=== PATIENT | female | born 1950 | race Hispanic/Latino ===

== ENCOUNTER 2016-11-19 08:17 | Inpatient (IN) | payer OTHER ==
--- NOTE | 2016-11-19 08:40 | ED PDOC ---
Arrival/HPI - General Chief Complaint: Abdominal Pain Time Seen by Provider: 11/19/16 08:39 Historian: Patient - History of Present Illness Narrative History of Present Illness (Text): Radhika Howard is a 66 year old female, whose past medical history includes, who presents to the emergency department complaining of diffuse, worsening upper abdominal pain for one week. Patient states that she experiences associated dizziness, sweats, and nausea. Patient went to an outpatient center who prescribed medications for acid reflux which brought no relief. Patient also went to her PMD three days ago, who took blood and told patient that she may have pancreatitis. PMD directed patient to the emergency department for further evaluation. Patient denies any fevers, recent injury, recent travels, trauma, vomiting, chest pain, or any other complaint at this time. Patient endorses that she is a daily drinker and has "a couple of drinks" every night, either gin or wine. PMD: Dr. Wilson Time/Duration: 1 week Symptom Onset: Gradual Symptom Course: Unchanged Severity Level: Mild Activities at Onset: Light Context: Home Past Medical History - Provider Review Nursing Documentation Reviewed: Yes - Infectious Disease Hx of Infectious Diseases: None - Tetanus Immunization Tetanus Immunization: Unknown - Reproductive Menopause: Yes - Cardiac Hx Hypertension: Yes Hx Pacemaker: Yes - Pulmonary Hx Respiratory Disorders: No - Neurological Hx Neurological Disorder: No - HEENT Hx HEENT Disorder: Yes (wears glasses) - Renal Hx Renal Disorder: No - Endocrine/Metabolic Hx Endocrine Disorders: No - Hematological/Oncological Hx Blood Disorders: No - Integumentary Hx Dermatological Disorder: No - Musculoskeletal/Rheumatological Hx Musculoskeletal Disorders: No Hx Arthritis: Yes ("all over") Hx Falls: No Hx Fractures: Yes (L wrist casted, R ft metatarsal casted) Hx Osteoarthritis: Yes ("all over") - Gastrointestinal Hx Gastrointestinal Disorders: No Hx Gastroesophageal Reflux: Yes Other/Comment: hemorrhoids a "long time ago" - Genitourinary/Gynecological Hx Genitourinary Disorders: No - Psychiatric Hx Psychophysiologic Disorder: No Hx Anxiety: Yes Hx Substance Use: No - Past Surgical History Past Surgical History: Unable to Obtain - Surgical History Hx Cardiac Catheterization: Yes (2001 neg) Hx Orthopedic Surgery: Yes (herniated disc c3 and 4,right hip replacement) Other/Comment: R hip replacement - Anesthesia Hx Anesthesia: No Hx Anesthesia Reactions: No Hx Malignant Hyperthermia: No - Suicidal Assessment Feels Threatened In Home Enviroment: No Family/Social History - Physician Review Nursing Documentation Reviewed: Yes Family/Social History: No Known Family HX Smoking Status: Former Smoker Hx Alcohol Use: Yes (occasional) Frequency of alcohol use: Socially Hx Substance Use: No Hx Substance Use Treatment: No Allergies/Home Meds Allergies/Adverse Reactions: Allergies Penicillins Allergy (Verified 11/19/16 08:25) RASH Home Medications: Home Meds Medication Instructions Recorded Confirmed Valsartan/Hydrochlorothiazide 1 tab PO DAILY 04/27/14 11/19/16 [Valsartan and Hydrochlorothiazide 12.5 mg-160] Amiodarone HCl [Pacerone] 100 mg PO DAILY 11/19/16 11/19/16 Metoprolol Succinate [Toprol XL] 100 mg PO DAILY 11/19/16 11/19/16 Review of Systems - Review of Systems Constitutional: Night Sweats. absent: Fevers Eyes: absent: Vision Changes ENT: absent: Hearing Changes Respiratory: absent: SOB, Cough Cardiovascular: absent: Chest Pain Gastrointestinal: Abdominal Pain, Nausea, Appetite Changes. absent: Vomiting Genitourinary Female: absent: Dysuria, Frequency Musculoskeletal: absent: Arthralgias Skin: absent: Rash, Pruritis Neurological: Dizziness Endocrine: absent: Polyuria Hemo/Lymphatic: absent: Easy Bleeding Psychiatric: absent: Depression Physical Exam - Physical Exam Narrative Physical Exam (Text): Constitutional: No acute distress. Head: Normocephalic. Atraumatic. Eyes: PERRL. ENT: Moist mucous membranes. Neck: Supple. Cardiovascular: Regular rate. Chest: No tenderness. Respiratory: Clear to auscultation bilaterally. GI: Epigastric tenderness with guarding. Back: No CVA tenderness. Musculoskeletal: No tenderness or swelling of extremities. Skin: No rash. Neurologic: Alert, no focal deficit. Vital Signs Reviewed: Yes Vital Signs Temp Pulse Resp BP Pulse Ox 11/19/16 11:29 98.3 F 60 18 100/70 100 11/19/16 09:30 66 18 94/55 L 99 11/19/16 08:38 97.8 F 80 18 100/59 L 97 Temperature: Afebrile Blood Pressure: Hypotensive Pulse: Regular Respiratory Rate: Normal Appearance: Positive for: Well-Appearing, Non-Toxic, Comfortable Pain Distress: None Mental Status: Positive for: Alert and Oriented X 3 Medical Decision Making ED Course and Treatment: Impression: 66 year old female complaining of diffuse abdominal pain for one week. Plan: -- EKG -- Chest X-ray -- Urinalysis and Urine Culture -- Type and Screen -- Labs -- Morphine and IV Fluids -- Reassess and disposition Prior Visits: Notes and results from previous visits were reviewed. Patient last seen in ED on 07/27/14 for shortness of breath and chest pain while shoveling snow. Patient was admitted to hospitalist care for further evaluation. Progress Notes: EKG: Ordered, reviewed, and independently interpreted the EKG. Rate : 73 BPM Rhythm : NSR Interpretation : No ST- T elevations or depressions. Comparison : No previous EKG for comparison. 11/19/16 09:55 Chest X-ray: Creator : Kenton Coffey MD FINDINGS: LUNGS:No active pulmonary disease. PLEURA:No significant pleural effusion identified, no pneumothorax apparent. CARDIOVASCULAR:Normal. OSSEOUS STRUCTURES:No significant abnormalities. VISUALIZED UPPER ABDOMEN:Normal. OTHER FINDINGS:Dual lead pacemaker IMPRESSION: No active disease. Dr. Issa accepts patient to Dr. Wilson's service. He states he will order GI consult at later time as patient does not have private GI. Agrees with US, potassium replacement, IVF, NPO. - Lab Interpretations Lab Results: 11/19/16 08:48 11/19/16 08:45 Lab Results 11/19/16 10:15: Urine Color Yellow, Urine Appearance Clear, Urine pH 6.5, Ur Specific [place] 1.010, Urine Protein Trace H, Urine Glucose (UA) Negative, Urine Ketones Negative, Urine Blood Negative, Urine Nitrate Negative, Urine Bilirubin Negative, Urine Urobilinogen 0.2, Ur Leukocyte Esterase Negative, Urine RBC Negative, Urine WBC 0 - 2, Ur Epithelial Cells 1 - 3, Urine Bacteria Small 11/19/16 09:10: Blood Type A POSITIVE, Antibody Screen Negative, BBK History Checked Patient has bt 11/19/16 08:48: PT 10.5, INR 0.97, APTT 29.4 11/19/16 08:48: WBC 9.1 D, RBC 3.63, Hgb 12.7, Hct 36.7, MCV 101.1, MCH 35.0, MCHC 34.6, RDW 13.5, Plt Count 330, MPV 9.8, Gran % 79.3 H, Lymph % (Auto) 10.0 L, Mathews % (Auto) 9.4 H, Eos % (Auto) 1.1 L, Baso % (Auto) 0.2, Gran # 7.22 H, Lymph # 0.9 L, Mathews # 0.9 H, Eos # 0.1, Baso # 0.02 11/19/16 08:45: Sodium 132, Potassium 2.9 L*, Chloride 91 L, Carbon Dioxide 29, Anion Gap 15, BUN 21, Creatinine 1.5 H, Est GFR ( Amer) 42, Est GFR (Non- Af Amer) 35, Random Glucose 112 H, Calcium 9.6, Total Bilirubin 0.5, AST 23, ALT 24, Alkaline Phosphatase 77, Lactate Dehydrogenase 360, Total Protein 7.7, Albumin 4.3, Globulin 3.4, Albumin/Globulin Ratio 1.3, Amylase 122, Lipase 965 H I have reviewed the lab results: Yes - RAD Interpretation Radiology Orders: 11/19/16 08:48 CHEST PORTABLE [RAD] Stat 11/19/16 09:54 ABDOMEN COMPLETE [US] Stat - Medication Orders Current Medication Orders: Sodium Chloride (Sodium Chloride 0.9%) 1,000 mls @ 100 mls/hr IV .Q10H MICKEY Last Admin: 11/19/16 11:48 Dose: 100 mls/hr Discontinued Medications Sodium Chloride (Sodium Chloride 0.9%) 1,000 mls @ 999 mls/hr IV .Q1H1M STA Stop: 11/19/16 09:48 Last Admin: 11/19/16 09:10 Dose: 999 mls/hr Potassium Chloride (Potassium Chloride 10 Meq/100 Ml) 10 meq in 100 mls @ 100 mls/hr IVPB ONCE ONE Stop: 11/19/16 10:49 Last Admin: 11/19/16 10:02 Dose: 100 mls/hr Morphine Sulfate (Morphine) 2 mg IVP STAT STA Stop: 11/19/16 08:50 Last Admin: 11/19/16 09:02 Dose: 2 mg Re-Assess: MAR Pain Assessment Document 11/19/16 10:02 SRE (Rec: 11/19/16 11:46 SRE [id number]) Pain Reassessment Is this a pain reassessment? Yes Sleep Is patient sleeping during reassessment? Yes Location Pain Location Body Site Abdomen - Scribe Statement The provider has reviewed the documentation as recorded by the Juan Lewis Provider Scribe Attestation: All medical record entries made by the Scribe were at my direction and personally dictated by me. I have reviewed the chart and agree that the record accurately reflects my personal performance of the history, physical exam, medical decision making, and the department course for this patient. I have also personally directed, reviewed, and agree with the discharge instructions and disposition. Disposition/Present on Arrival - Present on Arrival Any Indicators Present on Arrival: No History of DVT/PE: No History of Uncontrolled Diabetes: No Urinary Catheter: No History of Decub. Ulcer: No History Surgical Site Infection Following: None - Disposition Have Diagnosis and Disposition been Completed?: Yes Diagnosis: Pancreatitis, Hypokalemia Disposition: HOSPITALIZED Disposition Time: 09:55 Patient Plan: Admission Condition: GUARDED
[2016-11-19] MEDS ORDERED: Sodium Chloride 0.9% 1,000 ML IV STA (08:48)
[2016-11-19] MEDS ORDERED: Morphine 2 mg/ml ISec IVP STA (08:49)
[2016-11-19 08:57] VITALS: BMI 21.2
[2016-11-19 09:27] LABS: ADD MANUAL DIFF? NO; BASO # 0.02 K/mm3 (0.0-2.0); BASO % 0.2 % (0.0-3.0); EOS # 0.1 (0.0-0.7); EOS % 1.1 % (1.5-5.0); GRAN # 7.22 (1.4-6.5); GRAN % 79.3 % (50.0-68.0); HEMATOCRIT 36.7 % (36.0-48.0); LYMPH # 0.9 (1.2-3.4); MEAN CELL VOLUME 101.1 fL (80.0-105.0); MEAN CORPUSCULAR HGB CONC 34.6 g/dl (31.0-37.0); MEAN PLATELET VOLUME 9.8 fl (7.0-11.0); MONO # 0.9 (0.1-0.6); MONO % 9.4 % (1.0-6.0); PLATELET COUNT 330 10^3/uL (120.0-450.0); RED CELL DISTRIBUTION WIDTH 13.5 % (11.5-14.5); WHITE BLOOD COUNT 9.1 10^3/ul (4.5-11.0)
[2016-11-19 09:36] LABS: INR 0.97 (0.93-1.08); PARTIAL THROMBOPLASTIN TIME 29.4 Seconds (23.7-30.8)
[2016-11-19 09:43] LABS: ALB/GLOB RATIO 1.3 (1.1-1.8); BILIRUBIN,TOTAL 0.5 mg/dL (0.2-1.3); CALCIUM 9.6 mg/dL (8.4-10.5); TOTAL PROTEIN 7.7 g/dL (5.8-8.3)
[2016-11-19 09:50] LABS: POTASSIUM 2.9 mmol/L (3.6-5.0)
--- NOTE | 2016-11-19 09:51 | RAD ---
HISTORY: epigastric pain COMPARISON: 08/23/2014 FINDINGS: LUNGS: No active pulmonary disease. PLEURA: No significant pleural effusion identified, no pneumothorax apparent. CARDIOVASCULAR: Normal. OSSEOUS STRUCTURES: No significant abnormalities. VISUALIZED UPPER ABDOMEN: Normal. OTHER FINDINGS: Dual lead pacemaker IMPRESSION: No active disease.
[2016-11-19 10:45] LABS: PH,URINE 6.5 (4.7-8.0); URINE BILIRUBIN NEGATIVE (NEGATIVE); URINE BLOOD NEGATIVE (NEGATIVE); URINE GLUCOSE (UA) NEGATIVE (NEGATIVE); URINE KETONE NEGATIVE (NEGATIVE); URINE LEUKOCYTE ESTERASE NEGATIVE Leu/uL (NEGATIVE); URINE PROTEIN TRACE mg/dL (<30 mg/dL); URINE UROBILINOGEN 0.2 E.U./dL (<1 E.U./dL)
[2016-11-19 10:46] LABS: URINE APPEARANCE CLEAR (CLEAR); URINE COLOR YELLOW (YELLOW)
[2016-11-19 10:54] LABS: URINE BACTERIA SMALL (NEG); URINE RBC NEGATIVE /hpf (0-2); URINE WBC 0 - 2 /hpf (0-6)
[2016-11-19] MEDS ORDERED: Sodium Chloride 0.9% 1,000 ML IV SCH (11:45)
[2016-11-19] MEDS: Dextrose 5%/0.45% NS 1,000 ML IV SCH (13:48)
--- NOTE | 2016-11-19 14:31 | CARD ---
APPROVED REPORT EKG Measurement Heart [id number] <Conclusion> Poor data quality, interpretation may be adversely affected Normal sinus rhythm Possible Left atrial enlargement Septal infarct, age undetermined Abnormal ECG
[2016-11-19] MEDS ORDERED: Pneumococcal 23-Valent Vaccine IM ONE (14:45)
[2016-11-19] MEDS: Morphine 2 mg/ml ISec IVP PRN (14:49)
--- NOTE | 2016-11-19 18:17 | HP ---
HISTORY OF PRESENT ILLNESS: We were called earlier on today to consider admission for this 66-year-old female who was seen in our office on the , that is approximately 4 days ago, and subsequent labs done as she had some abdominal pain revealed an elevated lipase to the degree that Dr. Quincy Son recommended admission on 11/15, but she is here today, 11/19. On Emergency Room evaluation the patient complains of diffuse upper abdominal pain ongoing for 1 week. In our office the added information was prior history of ulcers. She also has some associated dizziness, sweats and nausea and had been evaluated prior to seeing us by an outpatient center who prescribed acid reflux medications before coming to the office and brought no relief. The patient was also seen by Dr. Sanchez and once the labs returned immediately the suspicion for pancreatitis due to elevated pancreatic enzymes. She has had no fevers or recent injuries. No recent travel and no vomiting to go along with the present abdominal pain. She does admit to drinking a couple of drinks every night either gin or wine. Review of her office chart is remarkable for essential hypertension, history of ventricular tachycardia and subsequent pacemaker insertion. 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 She also had a history of macrocytosis, osteoarthritis of the lumber spine, cervical spine degeneration, left hip pain. She continues to smoke, a history of first herpes zoster, CKD stage II, history of occasional dizziness and cough and ASHD. PAST SURGICAL HISTORY: Remarkable for laminectomy, right hip replacement in 2010, pacemaker insertion and defibrillation was on 08/2014. FAMILY HISTORY: Remarkable for father who at age 42 of heart disease. Her spouse is alive. Her mother at age 62 of liver disease. She has 2 sisters. SOCIAL HISTORY: She does not engage in any physical activity. 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 The drinks admitted in our office are to 2-3 times a week and on a typical day she has 1-2 drinks and on no occasion does she ever go over 6. She denies using any caffeine. ALLERGIES: PENICILLIN. REVIEW OF SYSTEMS: In the office were complaining of epigastric and mid abdominal pain for 4 days, now 7 days. The pain was dull and constant, associated with a loss of appetite and bloating. No fever, nausea or vomiting. The omeprazole yielded no relief and she has lost 8 pounds since 2 weeks before the present visit. PHYSICAL EXAMINATION: From the emergency room: VITAL SIGNS: Show a temperature of 97.8, a weight of 124; weighing 121 in our office 2 days ago. She is with regular pulse of 66, blood pressure 100/70, respiratory rate of 18 with 100% O2 sat by pulse oximetry. GENERAL: Alert and oriented, in mild discomfort. The pain scale in the office was a 4/10. She was conversant in the office and declined immediate referral to the Emergency Room when Dr. Sanchez spoke with her after the results were evident on Saturday and she was endorsed to me on the weekend as we were expecting an admission. Blood pressure in the office was normal at 121/73 versus our hypotensive notes here. HEENT: Normocephalic, atraumatic. Nose: Septum is intact and no mucosal erythema. Throat: Clear with no lesions on the pharynx. NECK: No cervical lymphadenopathy. Neck is supple, with full range of motion. Thyroid appears normal. CARDIAC: Showed no murmurs, rubs or gallops, was regular in rate and rhythm. LUNGS: Have diminished breath sounds with no wheezes, rales or rhonchi. ABDOMEN: Soft with no guarding and bowel sounds were present. There is tenderness on deep palpation of the epigastric and periumbilical area. EXTREMITIES: Showed no clubbing, cyanosis or edema. NEUROLOGIC: Intact. LABORATORY DATA: On admission showed WBC count of 9100 with a slight shift to the left with 79.3% granulocytes and 10% lymphocytes. however does not mention any bands. PT/INRs were normal. Potassium is low, so she was immediately supplemented. Has no diarrhea, so we are not sure of the etiology of the hypokalemia. Creatinine is 1.5, glucose is 112, amylase is 122, lipase is 965 and in the office was in excess of 1200. Urine color is fair, clear. Chest x- ray was consistent just with pacemaker visualization, otherwise unremarkable. The patient received a K rider and was placed on IV fluids. We have now changed the rate to more and she was given morphine in the ER with resolution. Review of her labs show that she is on omeprazole 40, amiodarone 200, hydrochlorothiazide 12.5, valsartan 80, clonazepam 1 mg twice a day, metoprolol ER 100. IMPRESSION: Pancreatitis, abdominal pain, evaluate with GI. SECONDARY DIAGNOSIS: History of pacemaker with continued use of amiodarone. We will ask for a cardiac consult with Dr. Eaton. PLAN: Continue at present her IV fluids, keep n.p.o. and await for further recommendations from cardio and GI. Serial labs were ordered for tomorrow and she will return under the care of Dr. Sanchez as we are covering for her today. Brain Issa MD cc: 73 TT: 11/19/2016 18:16:21 huseyin CRUZ
[2016-11-20] MEDS: Morphine 2 mg/ml ISec IVP PRN ×3 (04:32→20:19)
[2016-11-20] MEDS: Dextrose 5%/0.45% NS 1,000 ML IV SCH ×2 (04:32→22:12)
[2016-11-20 07:14] LABS: ADD MANUAL DIFF? NO
[2016-11-20 07:20] LABS: BASO # 0.03 K/mm3 (0.0-2.0); BASO % 0.5 % (0.0-3.0); EOS # 0.2 (0.0-0.7); EOS % 3.7 % (1.5-5.0); GRAN # 4.09 (1.4-6.5); GRAN % 63.8 % (50.0-68.0); HEMATOCRIT 35.3 % (36.0-48.0); LYMPH # 1.4 (1.2-3.4); LYMPH % 21.2 % (22.0-35.0); MEAN CELL VOLUME 102.9 fL (80.0-105.0); MEAN CORPUSCULAR HEMOGLOBIN 35.6 pg (25.0-35.0); MEAN CORPUSCULAR HGB CONC 34.6 g/dl (31.0-37.0); MEAN PLATELET VOLUME 9.8 fl (7.0-11.0); MONO # 0.7 (0.1-0.6); MONO % 10.8 % (1.0-6.0); PLATELET COUNT 309 10^3/uL (120.0-450.0); RED CELL DISTRIBUTION WIDTH 13.6 % (11.5-14.5); WHITE BLOOD COUNT 6.4 10^3/ul (4.5-11.0)
--- NOTE | 2016-11-20 07:33 | US ---
HISTORY: epigastric pain COMPARISON: None. TECHNIQUE: Sonographic evaluation of the abdomen. FINDINGS: LIVER: Measures 14.7 cm. Normal echogenicity of the liver parenchyma. No mass. No intrahepatic bile duct dilatation. GALLBLADDER: Unremarkable. No gallstones. COMMON BILE DUCT: Measures 3 mm. No stones. No dilatation. PANCREAS: Unremarkable as visualized. No mass. No ductal dilatation. RIGHT KIDNEY: Measures 9.8cm. Normal echogenicity. No calculus, mass, or hydronephrosis. LEFT KIDNEY: Measures 10.1cm. Normal echogenicity. No calculus, mass, or hydronephrosis. SPLEEN: Normal in size and contour. No mass. AORTA: No aneurysmal dilatation. IVC: Unremarkable. OTHER FINDINGS: None. IMPRESSION: Unremarkable abdominal sonogram.
[2016-11-20 07:45] LABS: ALB/GLOB RATIO 1.1 (1.1-1.8); ALKALINE PHOSPHATASE 68 U/L (38-133); ALT/SGPT 20 U/L (7-56); AMYLASE 102 U/L (35-125); AST/SGOT 23 U/L (15-39); BILIRUBIN,TOTAL 0.3 mg/dL (0.2-1.3); BLOOD UREA NITROGEN 14 mg/dL (7-21); CALCIUM 9.2 mg/dL (8.4-10.5); CARBON DIOXIDE 33 mmol/L (21-33); CHLORIDE 96 mmol/L (98-107); GFR AFRICAN-AMERICAN > 60; GLUCOSE,RANDOM 118 mg/dL (70-110); LIPASE 649 U/L (23-300); POTASSIUM 3.2 mmol/L (3.6-5.0); SODIUM 136 mmol/L (132-148); TOTAL PROTEIN 7.1 g/dL (5.8-8.3)
--- NOTE | 2016-11-20 09:39 | PN ---
DATE: 11/20/2016 SUBJECTIVE: The patient was admitted for acute pancreatitis yesterday morning. She is n.p.o. She is feeling better. Her pain improved. The patient denies any nausea or vomiting. She denies any diarrhea. PHYSICAL EXAMINATION: VITAL SIGNS: The patient is afebrile. Temperature 97, pulse 60 regular, blood pressure 108/68, respiratory rate 20. Her oxygen saturation is 99% on room air. GENERAL: The patient is comfortable in bed, alert, awake, oriented. HEENT: Head is normocephalic, atraumatic. Oral mucosa is moist. NECK: Supple. LUNGS: Clear to auscultation. HEART: Regular rhythm and rate. ABDOMEN: Soft. There is slight tenderness on deep palpation in the epigastric area. Bowel sounds are positive. EXTREMITIES: With no edema. LABORATORY DATA: This morning, CBC with stable WBC 6.4, hemoglobin 12.2, hematocrit 35.3. Chemistry with normal sodium 132, potassium improved to 3.2 this morning. Her renal function is normal. Her pancreatic enzymes/lipase is trending down; it is 649 this morning. Abdominal ultrasound showed normal pancreas with no signs of inflammation or pseudocysts. ASSESSMENT: 1. Acute pancreatitis, clinically improved with trending down lipase level. 2. Hypokalemia. 3. History of ventricular tachycardia, status post defibrillator. PLAN OF TREATMENT: Continue IV fluids. Will replace potassium. Will start clear liquid if okay with GI. Jerilyn Sanchez MD cc: [id number] TT: 11/20/2016 09:38:30 Confirmation # [id number] Dictation # [id number] huseyin CRUZ
[2016-11-20] MEDS: Metoprolol Succinate 100 mg XL Tab PO SCH (10:27)
[2016-11-20 10:30] LABS: C-REACTIVE PROTEIN 6.9 mg/dL (<0.8)
--- NOTE | 2016-11-20 11:34 | CON ---
DATE: 11/20/2016 REQUESTING PHYSICIAN: Dr. Issa. REASON FOR CONSULTATION: I have been asked to see this 66-year-old female who comes to the hospital with a 1-week history of progressively worsening diffuse abdominal pain. The patient states that the pain is colicky in nature throughout the abdomen and extending into the substernal area. Pain becam e progressively worse over several days prompting the patient to go to her medical doctor. Routine b lood work in her medical doctor's office apparently showed elevated amylase and lipase at which point the patient was instructed to come to the Emergency Room. In the Emergency Room, the patient was fo und to have an elevated lipase of 965 with a normal amylase. Ultrasound of the abdomen was negative for stones or bile duct dilatation. The liver appeared normal. She denies any nausea or vomiting, f kristine ore chills. The patient was diagnosed with peptic ulcer disease 20 years ago for which she too k PPI for several years but stopped years ago. PAST MEDICAL HISTORY: Notable for hypertension, ventricular tachycardia requiring pacemaker insertio n, DJD of lumbar spine, chronic left hip pain, nicotine use, CKD stage II, and coronary artery diseas e. PAST SURGICAL HISTORY: Notable for permanent pacemaker placement, right hip replacement, laminectomy . SOCIAL HISTORY: She smokes up to a half pack of cigarettes per day. She consumes alcohol socially. FAMILY HISTORY: Notable for father dying of heart disease in his 40s. Mother with liver disease in her 60s at that time of her . REVIEW OF SYSTEMS: A 14-point review of systems is notable for abdominal pain, substernal chest pain , loss of appetite. PHYSICAL EXAMINATION: GENERAL: Well-developed female lying in bed, comfortable. Her abdominal pain has greatly improved. VITAL SIGNS: Reveal temperature of 97.7, blood pressure 108/68, heart rate is 60. HEENT: Reveals sclerae to be white, conjunctivae pink. NECK: Supple. CHEST: Lungs are clear. HEART: Reveals regular rate and rhythm. ABDOMEN: Soft, nontender, no mass. EXTREMITIES: Show no edema. LABORATORY DATA: Reveal white blood cell count 6.4, hemoglobin 12.2. Chemistries reveal electrolyte s with potassium of 3.2, lipase down to 649, amylase is normal. IMPRESSION: A 66-year-old female with a 1-week history of diffuse abdominal pain, history of peptic ulcer disease with ultrasound negative for gallstones, suggestive of pancreatitis. Etiology of pancr eatitis is unclear at this point. RECOMMENDATIONS: 1. Will check serum triglyceride level. 2. Will request a CT of the abdomen with pancreatic protocol. 3. Will start the patient on a clear liquid diet. Aneudy Pride MD cc: [id number] TT: 11/20/2016 11:33:51 Confirmation # [id number] Dictation # [id number] mn
--- NOTE | 2016-11-20 13:11 | CON ---
DATE: 11/20/2016 SERVICE: Cardiology. CONSULTING PHYSICIAN: Dr. Moni Eaton. REASON FOR CONSULTATION: Cardiac evaluation and adjustment of cardiac medications, history of pacema ker, admitted with acute pancreatitis. BRIEF CLINICAL HISTORY: This is a 66-year-old female with past medical history significant for hyper tension, paroxysmal atrial fibrillation, ventricular tachycardia, status post permanent pacemaker by Dr. Barreto at [facility] in 08/2014, admitted with acute pancreatitis. Denies any lakeisha [address] pain, denies any shortness of breath, denies any palpitation. Denies any dyspnea on exertion. PAST MEDICAL HISTORY: Significant for hypertension, paroxysmal atrial fibrillation, sick sinus syndr ome possibly, status post pacemaker at [facility], status post permanent pacemaker 2014. PAST SURGICAL HISTORY: Significant for laminectomy in the past, right hip replacement in 2010, liliana ectomy 2006, status post pacemaker in 08/2014. FAMILY HISTORY: Significant for brother at the age of 42 with heart problems. SOCIAL HISTORY: No history of smoking. No history of alcohol abuse. ALLERGIES: PENICILLIN. CURRENT MEDICATIONS: The patient is taking amiodarone 200 mg daily, Toprol-XL 100 mg daily, valsarta n 12.5/160. REVIEW OF SYSTEMS: As per HPI. PHYSICAL EXAMINATION: VITAL SIGNS: Temperature afebrile, heart rate 60, blood pressure 108/68. HEENT: PERRLA. Extraocular muscles intact. NECK: Supple. No carotid bruits. No thyromegaly. CHEST: Clear to auscultation. HEART: S1, S2 regular. ABDOMEN: Soft. EXTREMITIES: Clubbing and cyanosis negative. LABORATORY DATA: Blood workup as follows: WBC 6.4, hemoglobin 12.1, hematocrit 35.3, platelet count 309. Chemistry shows sodium 137, potassium 3.2, chloride 97, carbon dioxide 33, anion gap of 10, BU N 14, creatinine 1.0. Triglyceride 199, amylase 102, and lipase 609. IMPRESSION: Hypokalemia, acute pancreatitis, history of sick sinus syndrome, status post permanent p acemaker 08/2014 at [facility] after having paroxysmal atrial fibrillation and ventric ular tachycardia. History of hip replacement in 2010, history of pacemaker 08/2014, history of rody ctomy 2006. The patient had echocardiography done, normal chamber size, ejection fraction 55%, mild mitral regurgitation dated 08/24/2014. RECOMMENDATION: We will continue amiodarone 100 mg daily, continue losartan. We will put metoprolol 100 mg daily. Will follow with you. Thank you, Dr. Issa, for providing us the opportunity in taking care of the patient. We will get lipid profile, TSH, hemoglobin A1c also. Moni Eaton MD cc: [id number] TT: 11/20/2016 13:10:13 Confirmation # [id number] Dictation # [id number] tn
[2016-11-21] MEDS: Morphine 2 mg/ml ISec IVP PRN (05:49)
[2016-11-21 07:05] LABS: ADD MANUAL DIFF? NO
[2016-11-21 07:11] LABS: BASO # 0.03 K/mm3 (0.0-2.0); BASO % 0.5 % (0.0-3.0); EOS # 0.3 (0.0-0.7); EOS % 4.7 % (1.5-5.0); GRAN # 3.38 (1.4-6.5); HEMATOCRIT 33.9 % (36.0-48.0); LYMPH # 1.5 (1.2-3.4); LYMPH % 26.4 % (22.0-35.0); MEAN CELL VOLUME 103.4 fL (80.0-105.0); MEAN CORPUSCULAR HEMOGLOBIN 35.1 pg (25.0-35.0); MEAN CORPUSCULAR HGB CONC 33.9 g/dl (31.0-37.0); MEAN PLATELET VOLUME 9.7 fl (7.0-11.0); MONO # 0.5 (0.1-0.6); MONO % 9.4 % (1.0-6.0); PLATELET COUNT 312 10^3/uL (120.0-450.0); RED CELL DISTRIBUTION WIDTH 13.6 % (11.5-14.5); WHITE BLOOD COUNT 5.7 10^3/ul (4.5-11.0)
[2016-11-21 07:21] LABS: ALB/GLOB RATIO 1.1 (1.1-1.8); ALKALINE PHOSPHATASE 59 U/L (38-133); ALT/SGPT 21 U/L (7-56); AST/SGOT 19 U/L (15-39); BILIRUBIN,TOTAL 0.4 mg/dL (0.2-1.3); BLOOD UREA NITROGEN 9 mg/dL (7-21); CALCIUM 9.1 mg/dL (8.4-10.5); CARBON DIOXIDE 31 mmol/L (21-33); CHLORIDE 100 mmol/L (98-107); GFR AFRICAN-AMERICAN > 60; GLUCOSE,RANDOM 127 mg/dL (70-110); LIPASE 485 U/L (23-300); MAGNESIUM 1.9 mg/dL (1.7-2.2); PHOSPHOROUS 2.9 mg/dL (2.5-4.5); POTASSIUM 3.6 mmol/L (3.6-5.0); SODIUM 135 mmol/L (132-148); TOTAL PROTEIN 6.4 g/dL (5.8-8.3)
[2016-11-21] MEDS ORDERED: Iohexol 240 (50 ml) ONE (07:44)
[2016-11-21 08:22] VITALS: PULSE 60; RESP 20; TEMP 98.1; O2SAT 97
--- NOTE | 2016-11-21 10:36 | PN ---
DATE: 11/21/2016 SUBJECTIVE: The patient is lying in bed, comfortable. The patient states that her abdominal pain roche s essentially resolved. She denies any nausea, vomiting. PHYSICAL EXAMINATION: VITAL SIGNS: Reveal temperature of 98.1, blood pressure of 94/60, heart rate of 60. ABDOMEN: Soft, nontender. LABORATORY DATA: Hemoglobin is 11.5. Chemistries reveal lipase down to 485. Triple phase CT scan o f the abdomen with pancreatic protocol results are pending. IMPRESSION: A 66-year-old female with history of peptic ulcer disease with increasing abdominal pain , elevated lipase, rule out pancreatitis. Her serum triglyceride level is 199. Her lipase is trendi ng downward. RECOMMENDATIONS: 1. Await results of CT scan of the abdomen with pancreatic protocol. 2. Advance diet as tolerated. If CT of the pancreas is okay, the patient can be discharged home wit h plans for outpatient endoscopy. Aneudy Pride MD cc: [id number] TT: 11/21/2016 10:35:15 Confirmation # [id number] Dictation # [id number] tn
[2016-11-21] MEDS: Metoprolol Succinate 100 mg XL Tab PO SCH (12:08)
[2016-11-21 12:20] VITALS: BP 94/61
--- NOTE | 2016-11-21 13:14 | PN ---
DATE: 11/21/2016 The patient is in room 373, bed 3. REASON FOR CONSULTATION AND FOLLOWUP: Acute pancreatitis, history of pacemaker insertion, paroxysmal atrial fibrillation, ventricular tachycardia. HISTORY OF PRESENT ILLNESS: The patient is a 66-year-old female with past medical history significan t for hypertension, paroxysmal atrial fibrillation, ventricular tachycardia, status post permanent pa cemaker insertion by Dr. Barreto at [facility] in 08/2014, admitted with acute pancreat itis. The patient lying flat in bed without any chest pain, shortness of breath, or palpitation. PHYSICAL EXAMINATION: VITAL SIGNS: Blood pressure 94/60, respirations 20, pulse 60, temperature 98.1. HEAD: Normocephalic. EYES: Pupils normal. Conjunctivae are slightly pale. NECK: JVP low. Carotids equal. THORAX: AP diameter normal. LUNGS: Clear. CARDIOVASCULAR: S1, S2. ABDOMEN: Soft. Bowel sounds normal. EXTREMITIES: No clubbing, no cyanosis. LABORATORY DATA: WBC 5.7, hemoglobin 11.5, hematocrit 33.9, platelets 312. Sodium 135, potassium 3. 6, BUN 9, creatinine 0.9. AST, ALT normal. Lipase 485. Amylase 102. Yesterday, lipase was 649. DIAGNOSES: Acute pancreatitis, history of sick sinus syndrome, status post permanent pacemaker inser tion, paroxysmal atrial fibrillation, history of ventricular tachycardia, status post permanent pacem keegan insertion. Echo showed normal chamber size, ejection fraction of 55%, mild mitral regurgitation , dated 08/24/2014. PLAN: The patient's clinical cardiac status is stable at this time. Amiodarone 100 mg p.o. daily, l osartan 50 mg p.o. daily, Protonix 40 mg IV daily. We will continue present therapy and will follow with you. Moni Tony MD cc: [id number] TT: 11/21/2016 13:13:51 Confirmation # [id number] Dictation # [id number]
--- NOTE | 2016-11-21 17:14 | DS ---
HISTORY OF PRESENT ILLNESS: The patient was admitted for acute pancreatitis with elevated lipase at 900 range. The patient is feeling better. The patient is tolerating diet. She denies any nausea, vomiting. Her abdominal pain improved significantly. PHYSICAL EXAMINATION: VITAL SIGNS: Stable. Temperature 98.1, blood pressure 98/68, respiratory rate 20, pulse 60 regular. GENERAL: The patient is alert, awake, oriented x 3. HEENT: Head is normocephalic, atraumatic. Oral mucosa is moist. NECK: Supple. LUNGS: Clear to auscultation. HEART: Regular rhythm and rate. ABDOMEN: Soft. There is slight tenderness on very deep palpation in the epigastric area, but no rebound or muscle guarding or masses palpable. Bowel sounds are positive. EXTREMITIES: With no edema. LABORATORY DATA: This morning, stable CBC with WBC 5.7, hemoglobin 11.5, hematocrit 33.9, platelet count 312. Chemistry with normal sodium 135, potassium 3.6, normal renal function. Her lipase is trending down it is at 485 this morning, down from 649 yesterday. Her abdominal ultrasound was normal. The patient had pancreatic CT scan, was reported as mild pancreatitis. DISCHARGE DIAGNOSES: 1. Acute pancreatitis, clinically improved with uncertain etiology. Negative for gallstones. 2. History of hypokalemia, improved. 3. History of ventricular tachycardia, status post defibrillator. PLAN OF TREATMENT: The patient will be discharged home today. She will be on cardiac healthy diet and was advised to avoid fried food, avoid alcohol. The patient will be maintained on her chronic medications: Amiodarone 100 mg daily , losartan HCT 160/12.5 daily and metoprolol succinate 100 mg daily. She will get a prescription for Percocet 5/325 one tablet as needed for pain. She was advised to follow up with primary care doctor next week on Saturday. She will also make appointment with wiring inspector in 2 weeks. Will need endoscopy and colonoscopy outpatient. Jerilyn Sanchez MD cc: [id number] TT: 11/21/2016 17:14:09 jn NANCY
--- NOTE | 2016-11-22 08:20 | CT ---
PROCEDURE: CT Abdomen and Pelvis with contrast HISTORY: pancreatitis COMPARISON: None. TECHNIQUE: Contrast dose: 150 cc of Omnipaque 350 Radiation dose: Total exam DLP = 722 mGy-cm. This CT exam was performed using one or more of the following dose reduction techniques: Automated exposure control, adjustment of the mA and/or kV according to patient size, and/or use of iterative reconstruction technique. FINDINGS: LOWER THORAX: Mild bibasilar discoid atelectasis. LIVER: Unremarkable. No gross lesion or ductal dilatation. GALLBLADDER AND BILE DUCTS: Unremarkable. PANCREAS: Mild peripancreatic edema consistent with mild pancreatitis. No evidence of necrosis or pseudocyst formation. SPLEEN: Unremarkable. ADRENALS: Unremarkable. No mass. KIDNEYS AND URETERS: Unremarkable. No hydronephrosis. No solid mass. VASCULATURE: Unremarkable. No aortic aneurysm. BOWEL: Unremarkable. No obstruction. No gross mural thickening. APPENDIX: Normal appendix. PERITONEUM: Unremarkable. No free fluid. No free air. LYMPH NODES: Unremarkable. No enlarged lymph nodes. BLADDER: Unremarkable. REPRODUCTIVE: Unremarkable. BONES: No acute fracture. OTHER FINDINGS: None. IMPRESSION: Mild peripancreatic edema consistent with mild pancreatitis. No evidence of necrosis or pseudocyst formation.
== END 2016-11-21 18:08 | disposition home or self-care (01) | DRG 440 ==
LOC: ED 08:17 → ERH 10:24 → 3RSO 12:28
PROVIDERS: ADMIT Family Medicine; ATTEND Family Medicine
DX: K85.90 Acute pancreatitis without necrosis or infection, unspecified (principal); I48.0 Paroxysmal atrial fibrillation; I12.9 Hypertensive chronic kidney disease with stage 1 through stage 4 chronic kidney disease, or unspecified chronic kidney disease; K21.9 Gastro-esophageal reflux disease without esophagitis; I25.10 Atherosclerotic heart disease of native coronary artery without angina pectoris; N18.2 Chronic kidney disease, stage 2 (mild); G89.29 Other chronic pain; M25.552 Pain in left hip; F17.210 Nicotine dependence, cigarettes, uncomplicated; E87.6 Hypokalemia; I34.0 Nonrheumatic mitral (valve) insufficiency; Z96.641 Presence of right artificial hip joint; Z95.810 Presence of automatic (implantable) cardiac defibrillator; Z87.11 Personal history of peptic ulcer disease

== ENCOUNTER 2018-01-27 13:28 | Observation (INO) | payer SELFPAY ==
[2018-01-27 13:47] VITALS: BMI 17.9
[2018-01-27] MEDS ORDERED: Iohexol 240 (50 ml) ONE (14:35)
[2018-01-27 15:20] LABS: BASO # 0.02 K/mm3 (0.0-2.0); BASO % 0.2 % (0.0-3.0); EOS # 0.1 (0.0-0.7); EOS % 0.5 % (1.5-5.0); GRAN # 7.6 (1.4-6.5); GRAN % 81.5 % (50.0-68.0); HEMOGLOBIN 11.1 g/dL (12.0-16.0); LYMPH % 10.8 % (22.0-35.0); MEAN CELL VOLUME 96.4 fl (80.0-105.0); MEAN CORPUSCULAR HGB CONC 34.3 g/dl (31.0-37.0); MEAN PLATELET VOLUME 10.5 fl (7.0-11.0); MONO # 0.7 (0.1-0.6); RBC 3.36 10^6/uL (3.5-6.1); RED CELL DISTRIBUTION WIDTH 15.1 % (11.5-14.5); WHITE BLOOD COUNT 9.3 10^3/ul (4.5-11.0)
[2018-01-27 15:28] LABS: ALB/GLOB RATIO 1.1 (1.1-1.8); ALBUMIN 3.6 g/dL (3.0-4.8); BILIRUBIN,DIRECT 0.2 mg/dL (0.0-0.4); CALCIUM 8.8 mg/dL (8.4-10.5); GFR AFRICAN-AMERICAN > 60; GFR NON-AFRICAN AMERICAN > 60; LIPASE 823 U/L (23-300)
[2018-01-27 15:30] LABS: ALT/SGPT 27 U/L (7-56); AST/SGOT 22 U/L (14-36); BLOOD UREA NITROGEN 12 mg/dL (7-21)
[2018-01-27 16:09] LABS: PH,URINE 6.5 (4.7-8.0); URINE BILIRUBIN MODERATE (NEGATIVE); URINE BLOOD NEGATIVE (NEGATIVE); URINE GLUCOSE (UA) NEGATIVE (NEGATIVE); URINE LEUKOCYTE ESTERASE TRACE Leu/uL (NEGATIVE); URINE PROTEIN 100 mg/dL (<30 mg/dL); URINE UROBILINOGEN 0.2 E.U./dL (<1 E.U./dL)
[2018-01-27 16:10] LABS: URINE APPEARANCE TURBID (CLEAR); URINE COLOR YELLOW (YELLOW)
[2018-01-27 16:13] LABS: URINE BACTERIA TRACE (NEG); URINE RBC NEGATIVE /hpf (0-2)
--- NOTE | 2018-01-27 16:56 | ED PDOC ---
Arrival/HPI - General Chief Complaint: Abdominal Pain Time Seen by Provider: 01/27/18 13:42 - History of Present Illness Narrative History of Present Illness (Text): 01/27/18 16:52 Ms. Howard is a pleasant 67 year old female with PMHx pancreatitis (admitted [facility] 11/19/2016), gastric ulcers, R hip replacement, pacemaker placement for persistent V tach who presents with epigastric pain and weight loss. Pt first began experiencing abdominal pain 2 months ago but states the pain has become unbearable over the past 2-3 weeks. She has had difficulty eating due to loss of appetite as well as abdominal pain and substernal pressure a/w eating solids or liquids. Pt describes 20 lb unintentional weight loss over the course of the past two months. Pt went to see Dr. Damon in the office this morning for worsening of her abdominal pain, and Dr. Wright sent the patient to the emergency department. Pt describes the pain as 8/10, sharp, and diffuse. Her last meal was half a cup of clear broth last evening as that was all she could tolerate. She denies any vomiting, diarrhea, constipation, blood in the stool or dark tarry stools. Her last BM was yesterday and was normal and non-bloody. She also complains of having a lot of gas in her abdomen and has been passing gas frequently. Pt is a smoker with many years history of smoking 1/2-1 pack/ day, drinks 1 mixed drink per night but has not had alcohol in 2 months since her abdominal symptoms. Past Medical History - Provider Review Nursing Documentation Reviewed: Yes - Infectious Disease Hx of Infectious Diseases: None - Tetanus Immunization Tetanus Immunization: Unknown - Cardiac Hx Cardiac Disorders: Yes Hx Hypertension: Yes Hx Pacemaker: Yes - Pulmonary Hx Respiratory Disorders: Yes (SMOKES 1/2 A PACK TO 1 PPD.) - Neurological Hx Neurological Disorder: No - HEENT Hx HEENT Disorder: Yes (wears glasses) - Renal Hx Renal Disorder: No - Endocrine/Metabolic Hx Endocrine Disorders: No - Hematological/Oncological Hx Blood Disorders: No - Integumentary Hx Dermatological Disorder: Yes Other/Comment: HEALED SKIN ABRASION TO RIGHT BACK OF LEG. - Musculoskeletal/Rheumatological Hx Musculoskeletal Disorders: Yes Hx Arthritis: Yes ("all over") Hx Fractures: Yes (L wrist casted, R ft metatarsal casted) Hx Osteoarthritis: Yes ("all over") - Gastrointestinal Hx Gastrointestinal Disorders: Yes Hx Gastroesophageal Reflux: Yes Other/Comment: hemorrhoids a "long time ago" - Genitourinary/Gynecological Hx Genitourinary Disorders: No - Psychiatric Hx Psychophysiologic Disorder: Yes (ETOH -DAILY WINE,SMOKES CIGARETTES 1/2-1 PPD.) Hx Anxiety: Yes Hx Substance Use: No - Past Surgical History Past Surgical History: Unable to Obtain - Surgical History Hx Cardiac Catheterization: Yes (2001 neg) Hx Orthopedic Surgery: Yes (herniated disc c3 and 4,right hip replacement) Other/Comment: R hip replacement - Anesthesia Hx Anesthesia: No Hx Anesthesia Reactions: No Hx Malignant Hyperthermia: No - Suicidal Assessment Feels Threatened In Home Enviroment: No Family/Social History Family/Social History: CVA/TIA (Father - CVA) Smoking Status: Current Some Days Smoker Hx Alcohol Use: No Hx Substance Use: No Hx Substance Use Treatment: No Allergies/Home Meds Allergies/Adverse Reactions: Allergies Penicillins Allergy (Verified 01/27/18 13:46) RASH Home Medications: Home Meds Medication Instructions Recorded Confirmed Valsartan/Hydrochlorothiazide 1 tab PO DAILY 04/27/14 01/27/18 [Valsartan-Hctz 160-12.5 mg Tab] Amiodarone HCl [Pacerone] 100 mg PO DAILY 11/19/16 01/27/18 Metoprolol Succinate XL [Toprol XL] 100 mg PO DAILY 11/19/16 01/27/18 Review of Systems - Review of Systems Constitutional: Weight Change (+20 lb weight loss). absent: Fevers Eyes: absent: Photophobia, Eye Pain ENT: absent: Sore Throat, Rhinorrhea Respiratory: absent: SOB, Sputum, Wheezing Cardiovascular: absent: Chest Pain, Edema Gastrointestinal: Abdominal Pain, Nausea, Appetite Changes, Anorexia, Food Intolerance. absent: Stool Changes, Constipation, Diarrhea, Vomiting, Hematochezia, Hematemesis Genitourinary Female: absent: Dysuria, Frequency Musculoskeletal: Normal. absent: Arthralgias, Back Pain Skin: Normal. absent: Rash, Pruritis Neurological: Normal. absent: Headache, Dizziness, Facial Droop Endocrine: Normal. absent: Polyuria, Polydipsia Physical Exam Vital Signs Reviewed: Yes Vital Signs Temp Pulse Resp BP Pulse Ox 01/27/18 19:52 98.2 F 78 16 128/76 100 01/27/18 13:47 98.1 F 96 H 18 156/52 H 98 Temperature: Afebrile Blood Pressure: Hypertensive Pulse: Regular Respiratory Rate: Normal Appearance: Positive for: Uncomfortable, Other (Thin appearing) Pain Distress: Moderate Mental Status: Positive for: Alert and Oriented X 3. No: Confused, Agitated - Systems Exam Head: Present: Atraumatic, Normocephalic Pupils: Present: PERRL Extroacular Muscles: Present: EOMI Conjunctiva: Present: Normal Mouth: Present: Moist Mucous Membranes Pharnyx: Present: Normal. No: ERYTHEMA, EXUDATE, TONSILS ENLARGED, Uvular Deviation Nose (External): Present: Atraumatic Neck: Present: Normal Range of Motion. No: JVD Respiratory/Chest: Present: Clear to Auscultation, Good Air Exchange. No: Respiratory Distress, Accessory Muscle Use, Wheezes Cardiovascular: Present: Regular Rate and Rhythm, Normal S1, S2, Other (+ Implanted Pacemaker). No: Murmurs Abdomen: Present: Tenderness, Normal Bowel Sounds. No: Distention, Peritoneal Signs, Rebound, Guarding, McBurney's Point Tender Upper Extremity: Present: Normal Inspection, NORMAL PULSES. No: Cyanosis, Edema Lower Extremity: Present: Normal Inspection, NORMAL PULSES. No: Edema Neurological: Present: GCS=15, CN II-XII Intact, Speech Normal Skin: Present: Warm, Dry, Normal Color. No: Rashes Psychiatric: Present: Alert, Oriented x 3, Normal [facility]ight Medical Decision Making ED Course and Treatment: Epigastric Pain - DDx: Carcinoma (pancreatic, gastric, mets) vs pancreatitis vs gastric ulcers vs gastritis 01/27/18 17:54 * CT Chest/Abd Pelvis w/ IV/PO contrast * Per radiology - Evidence of pancreatitis, possible pancreatic mass. Will obtain MRI. * CBC, CMP, liver panels, lipase, urine * Lipase - 823 - Lab Interpretations Lab Results: 01/27/18 15:05 01/27/18 15:05 Lab Results 01/27/18 15:50: Urine Color Yellow, Urine Appearance Turbid, Urine pH 6.5, Ur Specific Crawford 1.025, Urine Protein 100 H, Urine Glucose (UA) Negative, Urine Ketones 15 H, Urine Blood Negative, Urine Nitrate Negative, Urine Bilirubin Moderate H, Urine Urobilinogen 0.2, Ur Leukocyte Esterase Trace H, Urine RBC Negative, Urine WBC 5 - 10, Ur Epithelial Cells 3 - 4, Urine Bacteria Trace, Hyaline Casts 2 - 5 01/27/18 15:05: WBC 9.3 D, RBC 3.36 L, Hgb 11.1 L, Hct 32.4 L, MCV 96.4, MCH 33.0, MCHC 34.3, RDW 15.1 H, Plt Count 322, MPV 10.5, Gran % 81.5 H, Lymph % ( Auto) 10.8 L, Cloud % (Auto) 7.0 H, Eos % (Auto) 0.5 L, Baso % (Auto) 0.2, Gran # 7.60 H, Lymph # (Auto) 1.0 L, Cloud # (Auto) 0.7 H, Eos # (Auto) 0.1, Baso # ( Auto) 0.02 01/27/18 15:05: Sodium 139, Potassium 3.3 L, Chloride 99, Carbon Dioxide 27, Anion Gap 17, BUN 12, Creatinine 0.7, Est GFR ( Amer) > 60, Est GFR (Non- Af Amer) > 60, Random Glucose 90, Calcium 8.8, Total Bilirubin 0.7, Direct Bilirubin 0.2, AST 22, ALT 27, Alkaline Phosphatase 114, Total Protein 7.1, Albumin 3.6, Globulin 3.5, Albumin/Globulin Ratio 1.1, Lipase 823 H - RAD Interpretation Radiology Orders: 01/27/18 14:28 CHEST,ABD,PEL W/IV&PO CONTRAST [CT] Stat - EKG Interpretation EKG Interpretation (Text): 01/27/18 20:07 NSR Septal infarct, age undetermined T wave inversions V1-V3 QT prolonged (QTc 513) Interpreted by ED Physician: Yes Type: 12 lead EKG - Medication Orders Current Medication Orders: Alprazolam (Xanax) 0.25 mg PO TID PRN; Protocol PRN Reason: Anxiety Stop: 02/04/18 10:01 Enoxaparin Sodium (Lovenox) 40 mg SC DAILY MICKEY PRN Reason: Protocol Amiodarone HCl 100 mg/ (Dextrose) 102 mls @ 60 mls/hr IV DAILY MICKEY Sodium Chloride (Sodium Chloride 0.9%) 1,000 mls @ 999 mls/hr IV .Q1H1M STA Stop: 01/27/18 20:48 Potassium Chloride 20 meq/ (Sodium Chloride) 1,010 mls @ 0 mls/hr IV .Q0M MICKEY PRN Reason: Per Protocol Metoprolol Succinate (Toprol Xl) 100 mg PO BRK MICEKY Morphine Sulfate (Morphine) 2 mg IVP Q4 PRN PRN Reason: Pain, moderate (4-7) Ondansetron HCl (Zofran Inj) 4 mg IVP Q8 PRN PRN Reason: Nausea/Vomiting Pantoprazole Sodium (Protonix Inj) 40 mg IVP DAILY [facility] Disposition/Present on Arrival - Present on Arrival History of DVT/PE: No History of Uncontrolled Diabetes: No Urinary Catheter: No History of Decub. Ulcer: No History Surgical Site Infection Following: None - Disposition
--- NOTE | 2018-01-27 17:52 | CT ---
Date of service: 01/27/2018 PROCEDURE: CT Chest, Abdomen and Pelvis with intravenous contrast HISTORY: Abdominal pain and weight loss. COMPARISON: 11/21/2016 CT abdomen documenting acute pancreatitis. 11/19/2016 abdominal ultrasound TECHNIQUE: IV dose administered: 100 cc Omnipaque 350 Radiation dose: Total exam DLP = 387.47 mGy-cm. This CT exam was performed using one or more of the following dose reduction techniques: Automated exposure control, adjustment of the mA and/or kV according to patient size, and/or use of iterative reconstruction technique. FINDINGS: CT CHEST WITH CONTRAST: LUNGS: Clear. No nodule, mass or consolidation. MEDIASTINUM: Unremarkable. Normal caliber aorta and pulmonary arterial trunk. No aortic dissection. Normal size heart. LYMPH NODES: Unremarkable. PLEURA: Unremarkable. No pneumothorax. No pleural fluid. BONES: Unremarkable. OTHER FINDINGS: None. CT ABDOMEN AND PELVIS: LIVER: Hepatic steatosis, focal fatty sparing of the liver. No suspicious hepatic masses identified. GALLBLADDER AND BILE DUCTS: Unremarkable. PANCREAS: N although nonspecific, metastatic disease should be considered. However are there are suspicious findings pancreatic neoplasm. Specifically the pancreatic duct is dilated. The splenic vein is occluded/thrombosed. There are multiple cystic masses in the body and tail of the pancreas. There are either a inflammatory or neoplastic changes extending from the pancreas to the lesser curvature of stomach. SPLEEN: Ms. Cronin is a normal size and contour but there are multiple cystic areas within the ADRENALS: Unremarkable. No mass. KIDNEYS AND URETERS: Unremarkable. No hydronephrosis. No solid mass. VASCULATURE: Unremarkable. No aortic aneurysm. BOWEL: Diverticulosis without an acute inflammatory component or other associated pathologic process. APPENDIX: Normal appendix. PERITONEUM: Unremarkable. No free fluid. No free air. LYMPH NODES: Peripancreatic/retroperitoneal lymph nodes identified adjacent to the gastroduodenal artery. BLADDER: Unremarkable. REPRODUCTIVE: Remarkable uterus is visualized. Cystic right adnexal mass 2.3 x 2.8 cm. Cystic mass left adnexa 1.5 x 1.7 cm. BONES: No acute fracture. OTHER FINDINGS: None. IMPRESSION: 1. Ill-defined pancreatic and peripancreatic inflammatory changes of acute pancreatitis. 2. Inflammatory/infiltrative changes extend from the pancreas to the lesser curve. Whether this is the sequela of an acute inflammatory process or desmoplastic infiltration by tumor cannot be determined. 3. 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 4. There multiple cystic masses in the pancreas. Differentiating cystic neoplasm from pseudocyst is difficult. 5. Cystic lesions in the pancreas not seen previously and therefore suspicious for metastatic disease. These are not typical for embolic phenomenon/infarcts. Communication of results: I discussed these findings directly with the attending physician in the emergency department.
--- NOTE | 2018-01-27 18:38 | CP.PCM.HP ---
<Subhash Loya - Last Filed: 01/27/18 20:08> History of Present Illness - History of Present Illness History of Present Illness: 67 year old female with a past medical history of pancreatitis in 2017, gastric ulcers, ventricular tachycardia s/p pacemaker insertion, hypertension, and GERD presents with abdominal pain for 2-3 months and 20 pound weight loss in 2 months. Patient reports the pain is stabbing, aching abdominal pain that fluctuates from the left side of the abdomen to the right side of the abdomen. The pain is better when sitting up and worse when she lays on her back. Pain is unaffected by consumption of food. She denies radiation of pain to back or chest. Patient reports loss of appetite for one month. One month ago, patient visited her PCP, Dr. Flor, for abdominal pain and was prescribed prilosec. Patient reports pain did not improve and today, she saw Dr. Quincy Moss again for the same symptoms, who advised her to go to the emergency department. Patient also reports intermittent burning sensation of the chest and has been diagnosed with GERD. Patient reports 2 normal bowel movements per day and has not had an issue with bowel movements. Patient also reports having 2 endoscopies in 1988 and 1991 showing multiple gastric ulcers. Patient denies chest pain, heart palpitations, shortness of breath, nausea, vomiting, constipation, diarrhea, dysuria, and hematuria. PMD: Dr. Flor Women[employer] Ministry Director: Dr. Titus Flooring Sales Manager: Dr. Pride Pharmacy: [facility] Past medical history: pancreatitis, gastric ulcers, ventricular tachycardia, hypertension, GERD Past surgical history: hip replacement, pacemaker placement, laminectomy Family history: Mother from issues regarding the kidney. Father from coronary artery disease. All grandparents from strokes. Sister from pneumonia. Social history: 1 pack a day for at least 40 years. 2-3 drinks for at least 40 years. Denies any recreational drug use. Present on Admission - Present on Admission Any Indicators Present on Admission: No History of DVT/PE: No History of Uncontrolled Diabetes: No Urinary Catheter: No Review of Systems - EENT Eyes: absent: Blurred Vision, Decreased Night Vision, Diplopia Nose/Mouth/Throat: absent: Epistaxis, Dysphagia, Halitosis - Cardiovascular Cardiovascular: As Per HPI, Chest Pain (intermittent). absent: Diaphoresis, Dyspnea, Irregular Heart Rhythm - Respiratory Respiratory: absent: Cough, Dyspnea - Gastrointestinal Gastrointestinal: Abdominal Pain (epigastric, fluctuating from left to right), Bloating, Heartburn. absent: Coffee Ground Emesis, Constipation, Diarrhea, Hematemesis, Hematochezia - Musculoskeletal Musculoskeletal: As Per HPI. absent: Abnormal Gait, Arthralgias - Neurological Neurological: absent: Numbness, Tingling - Endocrine Endocrine: Change in Body Appearance (20 lb weight loss in 2 months) Past Patient History - Infectious Disease Hx of Infectious Diseases: None - Tetanus Immunizations Tetanus Immunization: Unknown - Past Social History Smoking Status: Current Some Days Smoker Alcohol: Other (2-3 drinks a few times a week) Drugs: Denies - CARDIAC Hx Cardiac Disorders: Yes Hx Hypertension: Yes Hx Pacemaker: Yes - PULMONARY Hx Respiratory Disorders: Yes (SMOKES 1/2 A PACK TO 1 PPD.) - NEUROLOGICAL Hx Neurological Disorder: No - HEENT Hx HEENT Problems: Yes (wears glasses) - RENAL Hx Chronic Kidney Disease: No - ENDOCRINE/METABOLIC Hx Endocrine Disorders: No - HEMATOLOGICAL/ONCOLOGICAL Hx Blood Disorders: No - INTEGUMENTARY Hx Dermatological Problems: Yes Other/Comment: HEALED SKIN ABRASION TO RIGHT BACK OF LEG. - MUSCULOSKELETAL/RHEUMATOLOGICAL Hx Musculoskeletal Disorders: Yes Hx Arthritis: Yes ("all over") Hx Fractures: Yes (L wrist casted, R ft metatarsal casted) Hx Osteoarthritis: Yes ("all over") - GASTROINTESTINAL Hx Gastrointestinal Disorders: Yes Hx Gastroesophageal Reflux: Yes Other/Comment: hemorrhoids a "long time ago" - GENITOURINARY/GYNECOLOGICAL Hx Genitourinary Disorders: No - PSYCHIATRIC Hx Psychophysiologic Disorder: Yes (ETOH -DAILY WINE,SMOKES CIGARETTES 1/2-1 PPD.) Hx Anxiety: Yes Hx Substance Use: No - SURGICAL HISTORY Hx Cardiac Catheterization: Yes (2001 neg) Hx Orthopedic Surgery: Yes (herniated disc c3 and 4,right hip replacement) Other/Comment: R hip replacement - ANESTHESIA Hx Anesthesia: No Hx Anesthesia Reactions: No Hx Malignant Hyperthermia: No Meds Allergies/Adverse Reactions: Allergies Allergy/AdvReac Type Severity Reaction Status Date / Time Penicillins Allergy RASH Verified 01/27/18 13:46 Physical Exam - Constitutional Appears: Well, Non-toxic - Head Exam Head Exam: ATRAUMATIC, NORMOCEPHALIC - Eye Exam Eye Exam: EOMI Pupil Exam: PERRL - ENT Exam ENT Exam: Mucous Membranes Moist - Respiratory Exam Respiratory Exam: Clear to Auscultation Bilateral, NORMAL BREATHING PATTERN - Cardiovascular Exam Cardiovascular Exam: REGULAR RHYTHM, RRR Additional comments: ICD in left side of chest - GI/Abdominal Exam GI & Abdominal Exam: Firm, Mass, Normal Bowel Sounds, Tenderness Additional comments: epigastric tenderness, mass - Extremities Exam Extremities exam: Positive for: full ROM, normal inspection - Back Exam Back exam: NORMAL INSPECTION - Neurological Exam Neurological exam: Alert, CN II-XII Intact, Oriented x3 - Skin Skin Exam: Dry, Intact, Normal Color Results - Vital Signs Recent Vital Signs: Last Vital Signs Temp 98.1 F 01/27/18 13:47 Pulse 96 H 01/27/18 13:47 Resp 18 01/27/18 13:47 BP 156/52 H 01/27/18 13:47 Pulse Ox 98 01/27/18 13:47 - Labs Result Diagrams: 01/27/18 15:05 01/27/18 15:05 Assessment & Plan - Assessment and Plan (Free Text) Assessment: 67 year old female with a past medical history of pancreatitis in 2017, gastric ulcers, ventricular tachycardia s/p pacemaker insertion, hypertension, and GERD presents with abdominal pain for 2-3 months and 20 pound weight loss in 2 months. Plan: Suspected Pancreatic Mass 2/2 to smoking and alcohol use -Patient has history of pancreatitis in 2017 -Patient has 40+ pack year history and has 2-3 drinks few times a week for 40+ years -Chest/Abd/Pelvic CT: ill-defined pancreatic and peripancreatic inflammatory changes of acute pancreatitis, inflammatory/infiltrative changes extend from the pancreas to the lesser curve. Indirect findings of pancreatic neoplasm including splenic vein thrombosis, dilatation of the pancreatic duct, multiple cystic masses in the pancreas, cystic lesions in the pancreas not previously seen and therefore suspicious for metastatic disease. These are not typical for embolic phenomenon/infarcts. -Lipase: 823 -IV fluids NS 0.9% 1 L -Morphine 2 mg Q4PRN for pain -Zofran 4 mg Q8PRN for pain -clear liquid diet -Dr. Pride consulted for GI. Possible EUS with biopsy tomorrow to confirm suspected pancreatic mass. If patient is to have procedure, patient should be placed NPO. Hypokalemia -Potassium: 3.3. Baseline is 3.2-3.9. -Continue to monitor. -Potassium chloride 20 mEq in NS 0.9% 1 L started Normocytic anemia -Hgb: 11.1. Baseline is 11.5-12.7 in 2017. -Continue to monitor. -Patient has history of peptic ulcer disease. If hemoglobin continues to downtrend, consider endoscopy. Hx of ventricular tachycardia -continue home amiodarone and metoprolol Hx of hypertension -continue home metoprolol Hx of Anxiety -alprazolam 0.25 mg PO TID PRN GI prophylaxis: protonix 40 mg daily DVT prophylaxis: lovenox 40 mg daily - Date & Time Date: 01/27/18 Time: 19:42 Decision To Admit - Pt Status Changed To: Hospital Disposition Of: Inpatient Admission - Admit Certification Admit to Inpatient:: After my assessment, the patient will require hospitalization for at least two midnights. This is because of the severity of symptoms shown, intensity of services needed, and/or the medical risk in this patient being treated as an outpatient. - . Bed Request Type: Med/Surg Admitting Physician: Diane Londono <Diane Londono - Last Filed: 01/29/18 07:52> Results - Vital Signs Recent Vital Signs: Last Vital Signs Temp 98.2 F 01/28/18 17:06 Pulse 66 01/28/18 17:06 Resp 20 01/28/18 17:06 BP 100/63 01/28/18 17:06 Pulse Ox 97 01/28/18 17:06 - Labs Result Diagrams: 01/29/18 06:05 01/29/18 06:05 Labs: Laboratory Results - last 24 hr 01/28/18 01/28/18 01/28/18 07:47 07:47 10:30 WBC 7.0 RBC 3.04 L Hgb 10.0 L Hct 29.2 L MCV 96.1 MCH 32.9 MCHC 34.2 RDW 15.4 H Plt Count 287 MPV 10.0 Gran % 64.1 Lymph % (Auto) 24.1 [place] % (Auto) 8.2 H Eos % (Auto) 3.2 Baso % (Auto) 0.4 Gran # 4.46 Lymph # (Auto) 1.7 [place] # (Auto) 0.6 Eos # (Auto) 0.2 Baso # (Auto) 0.03 Sodium 139 Potassium 3.8 3.7 Chloride 102 Carbon Dioxide 29 Anion Gap 12 BUN 7 Creatinine 0.6 L Est GFR ( Amer) > 60 Est GFR (Non-Af Amer) > 60 Random Glucose 89 Calcium 8.5 Phosphorus 2.8 Magnesium 1.9 Total Bilirubin 0.4 AST 17 ALT 15 Alkaline Phosphatase 100 Total Protein 5.9 Albumin 3.0 Globulin 2.9 Albumin/Globulin Ratio 1.0 L 01/29/18 01/29/18 06:05 06:05 WBC 6.8 RBC 2.88 L Hgb 9.6 L Hct 28.3 L MCV 98.3 MCH 33.3 MCHC 33.9 RDW 15.9 H Plt Count 304 MPV 10.2 Gran % 65.9 Lymph % (Auto) 20.7 L [place] % (Auto) 9.9 H Eos % (Auto) 3.1 Baso % (Auto) 0.4 Gran # 4.46 Lymph # (Auto) 1.4 [place] # (Auto) 0.7 H Eos # (Auto) 0.2 Baso # (Auto) 0.03 Sodium 140 Potassium 4.6 Chloride 105 Carbon Dioxide 30 Anion Gap 10 BUN 6 L Creatinine 0.6 L Est GFR ( Amer) > 60 Est GFR (Non-Af Amer) > 60 Random Glucose 98 Calcium 8.6 Phosphorus 2.9 Magnesium 1.9 Total Bilirubin 0.5 AST 16 ALT 22 Alkaline Phosphatase 90 Total Protein 5.7 L Albumin 2.8 L Globulin 2.9 Albumin/Globulin Ratio 0.9 L Attending/Attestation - Attestation I have personally seen and examined this patient.: Yes I have fully participated in the care of the patient.: Yes I have reviewed all pertinent clinical information: Yes Notes (Text): 01/29/18 07:49 Attending note; Patient seen and examined with resident in ER. Patient's by the bedside. Patient is a 67 year old female with a past medical history of pancreatitis in 2017, gastric ulcers, ventricular tachycardia s/p pacemaker insertion, hypertension, active smoking , history of alcohol abuse and GERD presents with abdominal pain for 2-3 months and 20 pound weight loss in [address] abdomen and pelvis showed ill-defined pancreatic and peripancreatic inflammation with a suspicion of pancreatitis with pseudocyst versus pancreatic mass. GI evaluation requested. Nothing by mouth. Started on IV fluids. IV morphine for pain management. History of arrhythmias; status post pacemaker. Stable cardiac status. History of smoking; smoking cessation is strongly advised. History of alcohol abuse; patient stop alcohol use few months ago. Monitor closely. Upon discharge patient will follow up with PMD .
[2018-01-27] MEDS ORDERED: Sodium Chloride 0.9% 1,000 ML IV STA (19:48)
[2018-01-27 22:56] LABS: BASO # 0.02 K/mm3 (0.0-2.0); BASO % 0.3 % (0.0-3.0); EOS # 0.2 (0.0-0.7); GRAN # 5.79 (1.4-6.5); GRAN % 73.1 % (50.0-68.0); HEMOGLOBIN 10.5 g/dL (12.0-16.0); LYMPH # 1.4 (1.2-3.4); LYMPH % 17.2 % (22.0-35.0); MEAN CELL VOLUME 95.5 fl (80.0-105.0); MEAN CORPUSCULAR HEMOGLOBIN 33.9 pg (25.0-35.0); MEAN CORPUSCULAR HGB CONC 35.5 g/dl (31.0-37.0); MEAN PLATELET VOLUME 10.2 fl (7.0-11.0); MONO # 0.6 (0.1-0.6); MONO % 7.4 % (1.0-6.0); RBC 3.1 10^6/uL (3.5-6.1); RED CELL DISTRIBUTION WIDTH 15.3 % (11.5-14.5); WHITE BLOOD COUNT 7.9 10^3/ul (4.5-11.0)
[2018-01-27 23:00] LABS: ALT/SGPT 15 U/L (7-56); AST/SGOT 17 U/L (14-36); BLOOD UREA NITROGEN 9 mg/dL (7-21); CALCIUM 8.5 mg/dL (8.4-10.5); GFR AFRICAN-AMERICAN > 60; GFR NON-AFRICAN AMERICAN > 60
[2018-01-27] MEDS ORDERED: Potassium Chloride 20 mEq ER Tab PO STA (23:58)
[2018-01-28] MEDS: Morphine 2 mg/ml ISec IVP PRN ×5 (04:23→23:50)
[2018-01-28] MEDS ORDERED: Potassium Chloride 20 mEq ER Tab PO STA (07:48)
[2018-01-28 08:05] LABS: BASO # 0.03 K/mm3 (0.0-2.0); BASO % 0.4 % (0.0-3.0); EOS # 0.2 (0.0-0.7); EOS % 3.2 % (1.5-5.0); GRAN # 4.46 (1.4-6.5); GRAN % 64.1 % (50.0-68.0); LYMPH # 1.7 (1.2-3.4); LYMPH % 24.1 % (22.0-35.0); MEAN CELL VOLUME 96.1 fl (80.0-105.0); MEAN CORPUSCULAR HEMOGLOBIN 32.9 pg (25.0-35.0); MEAN CORPUSCULAR HGB CONC 34.2 g/dl (31.0-37.0); MONO # 0.6 (0.1-0.6); MONO % 8.2 % (1.0-6.0); RBC 3.04 10^6/uL (3.5-6.1); RED CELL DISTRIBUTION WIDTH 15.4 % (11.5-14.5)
[2018-01-28 08:18] VITALS: RESP 20
[2018-01-28 08:32] LABS: ALT/SGPT 15 U/L (7-56); AST/SGOT 17 U/L (14-36); BLOOD UREA NITROGEN 7 mg/dL (7-21); CALCIUM 8.5 mg/dL (8.4-10.5); GFR AFRICAN-AMERICAN > 60; GFR NON-AFRICAN AMERICAN > 60
[2018-01-28] MEDS: Metoprolol Succinate 100 mg XL Tab PO SCH (08:36)
[2018-01-28] MEDS ORDERED: AMIODARONE IV SCH (10:00)
[2018-01-28] MEDS ORDERED: Amiodarone 450mg/9 ml vial IV SCH (10:00)
[2018-01-28] MEDS ORDERED: DEXTROSE 5% IV SCH (10:00)
[2018-01-28] MEDS ORDERED: WATER IV SCH (10:00)
[2018-01-28] MEDS: Enoxaparin 40 mg Syringe SC SCH (10:22)
--- NOTE | 2018-01-28 14:37 | CP.PCM.PN ---
<Subhash Loya - Last Filed: 01/28/18 15:36> Subjective - Date & Time of Evaluation Date of Evaluation: 01/28/18 Time of Evaluation: 14:34 - Subjective Subjective: Subhash Loya, PGY-1, Internal Medicine Progress Note Patient seen and examined this morning. Patient had no significant overnight events. Patient reported abdominal pain improved with morphine. Patient reports 2 episodes of diarrhea after intake of contrast for CT yesterday and back pain reproducible on palpation. Patient denies headache, dizziness, chest pain, heart palpitations, shortness of breath, nausea, vomiting, constipation, dysuria , and hematuria. Objective - Vital Signs/Intake and Output Vital Signs (last 24 hours): Temp Pulse Resp BP Pulse Ox 98.3 F 61 20 100/64 96 01/28/18 08:17 01/28/18 10:18 01/28/18 08:17 01/28/18 10:18 01/28/18 08:17 Intake and Output: 01/28/18 01/28/18 06:59 18:59 Intake Total 450 Balance 450 - Medications Medications: Current Medications Alprazolam (Xanax) 0.25 mg PO TID PRN; Protocol PRN Reason: Anxiety Stop: 02/04/18 10:01 Amiodarone HCl (Cordarone) 100 mg PO DAILY [facility] Last Admin: 01/28/18 10:18 Dose: 100 mg Enoxaparin Sodium (Lovenox) 40 mg SC DAILY [facility] PRN Reason: Protocol Last Admin: 01/28/18 10:22 Dose: 40 mg Metoprolol Succinate (Toprol Xl) 100 mg PO K [facility] Last Admin: 01/28/18 08:36 Dose: 100 mg Morphine Sulfate (Morphine) 2 mg IVP Q4 PRN PRN Reason: Pain, moderate (4-7) Last Admin: 01/28/18 12:47 Dose: 2 mg Ondansetron HCl (Zofran Inj) 4 mg IVP Q8 PRN PRN Reason: Nausea/Vomiting Pantoprazole Sodium (Protonix Inj) 40 mg IVP DAILY [facility] Last Admin: 01/28/18 10:21 Dose: 40 mg - Labs Labs: 01/28/18 07:47 01/28/18 10:30 - Constitutional Appears: Well, Non-toxic - Head Exam Head Exam: ATRAUMATIC, NORMOCEPHALIC - Eye Exam Eye Exam: EOMI Pupil Exam: PERRL - Respiratory Exam Respiratory Exam: Clear to Ausculation Bilateral, NORMAL BREATHING PATTERN - Cardiovascular Exam Cardiovascular Exam: REGULAR RHYTHM, RRR - GI/Abdominal Exam GI & Abdominal Exam: Soft, Tenderness Additional comments: Diffuse but worse at epigastric region - Extremities Exam Extremities Exam: Full ROM - Neurological Exam Neurological Exam: Alert, Awake, CN II-XII Intact, Oriented x3 Neuro motor strength exam: Left Upper Extremity: 5, Right Upper Extremity: 5, Left Lower Extremity: 5, Right Lower Extremity: 5 - Psychiatric Exam Psychiatric exam: Normal Affect, Normal Mood - Skin Skin Exam: Dry, Intact, Normal Color Assessment and Plan - Assessment and Plan (Free Text) Assessment: 67 year old female with a past medical history of pancreatitis in 2017, gastric ulcers, ventricular tachycardia s/p pacemaker insertion, hypertension, and GERD presents with abdominal pain for 2-3 months and 20 pound weight loss in 2 months. Plan: Pancreatic Mass -Patient has history of pancreatitis in 2017. Patient has 40+ pack year history and has 2-3 drinks few times a week for 40+ years -Chest/Abd/Pelvic CT (01/27): ill-defined pancreatic and peripancreatic inflammatory changes of acute pancreatitis, inflammatory/infiltrative changes extend from the pancreas to the lesser curve. Indirect findings of pancreatic neoplasm including splenic vein thrombosis, dilatation of the pancreatic duct, multiple cystic masses in the pancreas, cystic lesions in the pancreas not previously seen and therefore suspicious for metastatic disease. These are not typical for embolic phenomenon/infarcts. -Lipase: 823 -IV fluids NS 0.9% 1 L -Morphine 2 mg Q4PRN for pain -Zofran 4 mg Q8PRN for pain -Clear liquid diet progressed to full liquid diet. -Dr. Pride consulted for GI. Dr. Pride does not do EUS procedures so possible intervention by interventional radiology for biopsy of pancreas. If patient is to have procedure, patient should be placed NPO. Hypokalemia -Potassium: 2.4 on 01/27 at 22:41. 80 mEq of KDUR IV given last night. Current potassium is 3.7. -Baseline is 3.2-3.9. -Continue to monitor. Normocytic anemia -Hgb: 10.0. Baseline is 11.5-12.7 in 2017. -Continue to monitor. -Patient has history of peptic ulcer disease. If hemoglobin continues to downtrend, consider endoscopy. Hx of ventricular tachycardia -continue home amiodarone and metoprolol Hx of hypertension -continue home metoprolol Hx of Anxiety -alprazolam 0.25 mg PO TID PRN GI prophylaxis: protonix 40 mg daily DVT prophylaxis: lovenox 40 mg daily <Diane Londono - Last Filed: 01/29/18 07:56> Objective - Vital Signs/Intake and Output Vital Signs (last 24 hours): Temp Pulse Resp BP Pulse Ox 98.2 F 66 20 100/63 97 01/28/18 17:06 01/28/18 17:06 01/28/18 17:06 01/28/18 17:06 01/28/18 17:06 Intake and Output: 01/29/18 01/29/18 06:59 18:59 Intake Total 340 Balance 340 - Medications Medications: Current Medications Alprazolam (Xanax) 0.25 mg PO TID PRN; Protocol PRN Reason: Anxiety Stop: 02/04/18 10:01 Amiodarone HCl (Cordarone) 100 mg PO DAILY [facility] Last Admin: 01/28/18 10:18 Dose: 100 mg Enoxaparin Sodium (Lovenox) 40 mg SC DAILY [facility] PRN Reason: Protocol Last Admin: 01/28/18 10:22 Dose: 40 mg Metoprolol Succinate (Toprol Xl) 100 mg PO BRK [facility] Last Admin: 01/28/18 08:36 Dose: 100 mg Morphine Sulfate (Morphine) 2 mg IVP Q4 PRN PRN Reason: Pain, moderate (4-7) Last Admin: 01/29/18 06:02 Dose: 2 mg Ondansetron HCl (Zofran Inj) 4 mg IVP Q8 PRN PRN Reason: Nausea/Vomiting Pantoprazole Sodium (Protonix Inj) 40 mg IVP DAILY [facility] Last Admin: 01/28/18 10:21 Dose: 40 mg - Labs Labs: 01/29/18 06:05 01/29/18 06:05 Attending/Attestation - Attestation I have personally seen and examined this patient.: Yes I have fully participated in the care of the patient.: Yes I have reviewed all pertinent clinical information, including history, physical exam and plan: Yes Notes (Text): 01/29/18 07:52 Attending note; Patient seen and examined with resident in the morning. The patient was again seen in the afternoon with . Patient's by the bedside. Patient is a 67 year old female with a past medical history of pancreatitis in 2017, gastric ulcers, ventricular tachycardia s/p pacemaker insertion, hypertension, active smoking , history of alcohol abuse and GERD presents with abdominal pain for 2-3 months and 20 pound weight loss in [address] abdomen and pelvis showed ill-defined pancreatic and peripancreatic inflammation with a suspicion of pancreatitis with pseudocyst versus pancreatic mass. GI evaluation appreciated. CAT scan reviewed with interventional radiology on GI. Case discussed with DR. Leslie in [facility]. Patient is given a contact number to make appointment with [facility] / GI for outpatient EUS and biopsy. Started on clear liquid diet. Advance as tolerated. History of arrhythmias; status post pacemaker. Stable cardiac status. History of smoking; smoking cessation is strongly advised. History of alcohol abuse; patient stop alcohol use few months ago. Monitor closely. Possible discharge with close outpatient follow-up for EUS and biposy at [facility]. Case discussed with PMD in detail. Upon discharge patient will follow up with PMD .
--- NOTE | 2018-01-28 15:48 | CARD ---
APPROVED REPORT Date of service: 01/27/2018 EKG Measurement Heart [id number] <Conclusion> Normal sinus rhythm Septal infarct, age undetermined T wave abnormality, consider anterior ischemia Prolonged QT Abnormal ECG
--- NOTE | 2018-01-28 22:13 | CON ---
Copied To: Aneudy Pride MD Attending MD: Aneudy Pride MD DATE: 01/28/2018 REQUESTING PHYSICIAN: Dr. Londono. REASON FOR CONSULTATION: I been asked to see this 67-year-old female with multiple comorbidities including history of ventricular tachycardia, status post permanent pacemaker placement several years ago, hypertension, gastroesophageal reflux disease, acute pancreatitis diagnosed back in 10/2016, history of chronic alcohol use who comes to the hospital with 2-month history of increasing mid abdominal pain. The patient has also lost about 20 pounds in the last 2 months. She denies any nausea, vomiting, hematemesis, melena, rectal bleeding. The patient states the pain is mostly continuous; there are only several hours throughout the day when she does not have any pain. There is no worsening of pain with food. The pain radiates from the left side of the abdomen across the middle of her abdomen to the right side. She has a history of gastric ulcers back in 1991. CT scan of the abdomen and pelvis performed in the emergency room reveals multiple cystic lesions in the body of the pancreas with a dilated pancreatic duct and some peripancreatic inflammation. She currently is hungry and asking for food. She had clear liquid breakfast this morning. PAST MEDICAL HISTORY: Again is notable for ventricular tachycardia, status post permanent pacemaker, AICD placement several years ago, pancreatitis, peptic ulcer disease, hypertension, gastroesophageal reflux disease. PAST SURGICAL HISTORY: Notable for permanent pacemaker/AICD placement, laminectomy, hip replacement. SOCIAL HISTORY: The patient smokes up to a pack of cigarettes per day. She consumes three shots of gin or glasses of wine daily. She states that she has not had a drink since her abdominal pain began several months ago. She denies any recreational drug use. FAMILY HISTORY: Notable for father with coronary artery disease. REVIEW OF SYSTEMS: A 14-point review of systems is positive for abdominal pain and weight loss. MEDICATIONS AT HOME: Include amiodarone, metoprolol, and valsartan/hydrochlorothiazide. PHYSICAL EXAMINATION: GENERAL: Thin female, lying in bed, in no distress. VITAL SIGNS: Reveal temperature of 98.3, blood pressure 100/64, heart rate 62. HEENT: Reveal sclerae to be white. Conjunctivae pink. NECK: Supple. CHEST: Reveal lungs to be clear. HEART: Reveals a regular rate and rhythm. ABDOMEN: Soft. Mild diffuse tenderness. There is no rebound. There is some mild voluntary guarding. EXTREMITIES: Show no edema. LABORATORY DATA: Reveal white blood cell count of 7, hemoglobin of 10. Chemistries reveal normal electrolytes. Yesterday her potassium was down to 2.4, this was repleted. Hr lipase yesterday was 823. IMPRESSION: This is a 67-year-old female, with several months of worsening abdominal pain with a CT scan of the abdomen and pelvis showing what appears to be a smoldering pancreatitis with multiple cystic lesions in the body of the pancreas, peripancreatic inflammation and pancreatic duct dilatation; no pancreatic duct stones were seen. Unfortunately the patient cannot undergo a MRCP due to the presence of a permanent pacemaker/AICD. She is hungry and asking for her diet to be advanced. RECOMMENDATIONS: 1. Slow diet advancement as tolerated. 2. The patient will need referral to a tertiary pancreaticobiliary center for an endoscopic ultrasound. Aneudy Pride MD
[2018-01-29] MEDS: Morphine 2 mg/ml ISec IVP PRN (06:02)
[2018-01-29 06:25] LABS: BASO # 0.03 K/mm3 (0.0-2.0); BASO % 0.4 % (0.0-3.0); EOS # 0.2 (0.0-0.7); EOS % 3.1 % (1.5-5.0); GRAN # 4.46 (1.4-6.5); GRAN % 65.9 % (50.0-68.0); HEMOGLOBIN 9.6 g/dL (12.0-16.0); LYMPH # 1.4 (1.2-3.4); LYMPH % 20.7 % (22.0-35.0); MEAN CELL VOLUME 98.3 fl (80.0-105.0); MEAN CORPUSCULAR HEMOGLOBIN 33.3 pg (25.0-35.0); MEAN CORPUSCULAR HGB CONC 33.9 g/dl (31.0-37.0); MEAN PLATELET VOLUME 10.2 fl (7.0-11.0); MONO # 0.7 (0.1-0.6); MONO % 9.9 % (1.0-6.0); RBC 2.88 10^6/uL (3.5-6.1); RED CELL DISTRIBUTION WIDTH 15.9 % (11.5-14.5); WHITE BLOOD COUNT 6.8 10^3/ul (4.5-11.0)
[2018-01-29 06:42] LABS: ALB/GLOB RATIO 0.9 (1.1-1.8); ALBUMIN 2.8 g/dL (3.0-4.8); ALT/SGPT 22 U/L (7-56); AST/SGOT 16 U/L (14-36); BLOOD UREA NITROGEN 6 mg/dL (7-21); CALCIUM 8.6 mg/dL (8.4-10.5); GFR AFRICAN-AMERICAN > 60; GFR NON-AFRICAN AMERICAN > 60
[2018-01-29 07:55] VITALS: BP 139/73; PULSE 60; TEMP 99; O2SAT 95
--- NOTE | 2018-01-29 08:10 | PN ---
Copied To: Aneudy Pride MD Attending MD: Aneudy Pride MD DATE: 01/29/2018 SUBJECTIVE: The patient is lying in bed. She states that she feels much better with less abdominal pain. She denies any nausea, vomiting, fevers or chills. PHYSICAL EXAMINATION: VITAL SIGNS: Reveal temperature of 99, blood pressure 139/73, heart rate of 60. HEENT: Reveals sclerae to be white. Conjunctivae pink. NECK: Supple. CHEST: Reveal lungs to be clear. She has a left subclavian permanent pacemaker/AICD. LUNGS: Clear. HEART: Reveals regular rate and rhythm. ABDOMEN: Soft, nontender. EXTREMITIES: Show no edema. LABORATORY DATA: Reveals white blood cell count 6.8, hemoglobin 9.6. This is from this morning. Chemistries reveal BUN 6, creatinine 0.6, normal electrolytes. IMPRESSION: Acute pancreatitis with multiple cysts seen in the pancreas. These may be either pseudocysts or possibly intraductal papillary mucinous neoplasm. RECOMMENDATIONS: 1. I will advance the patient to a low-fat diet. 2. The patient will need to be seen at a tertiary Pancreatobiliary Center at [facility] in [place] for endoscopic ultrasound. She will be given information to see Dr. Kamara for EUS I have stressed the importance of this to the patient as a possible pancreatic neoplasm needs to be ruled out. Aneudy Pride MD
[2018-01-29] MEDS: Metoprolol Succinate 100 mg XL Tab PO SCH (08:39)
[2018-01-29] MEDS: Enoxaparin 40 mg Syringe SC SCH (10:34)
--- NOTE | 2018-01-29 14:55 | US ---
HISTORY: Leg pain and swelling. Evaluate for DVT PHYSICIAN(S): Jose Maria Ware MD. TECHNIQUE: Duplex sonography and color-flow Doppler with graded compression were used to evaluate the deep venous systems of both lower extremities. FINDINGS: The visualized deep venous systems of both lower extremities are sonographically normal and compressible. Normal wave forms and augmentation are seen. There is no sonographic evidence for deep venous thrombosis in the visualized segments of both lower extremities. IMPRESSION: No sonographic evidence for deep venous thrombosis in the visualized segments of both lower extremities.
--- NOTE | 2018-01-29 16:02 | CP.PCM.DIS ---
<EddennySubhash fisher - Last Filed: 01/29/18 16:31> Provider - Provider Date of Admission: 01/27/18 17:50 Attending physician: Diane Londono MD Primary care physician: PCP: Dr. Abrams Consults: GI: Dr. Pride Time Spent in preparation of Discharge (in minutes): 100 Diagnosis - Discharge Diagnosis (1) Pancreatic mass Status: Acute Priority: High Hospital Course - Lab Results Lab Results: Most Recent Lab Values WBC 6.8 10^3/ul (4.5-11.0) 01/29/18 06:05 RBC 2.88 10^6/uL (3.5-6.1) L 01/29/18 06:05 Hgb 9.6 g/dL (12.0-16.0) L 01/29/18 06:05 Hct 28.3 % (36.0-48.0) L 01/29/18 06:05 MCV 98.3 fl (80.0-105.0) 01/29/18 06:05 MCH 33.3 pg (25.0-35.0) 01/29/18 06:05 MCHC 33.9 g/dl (31.0-37.0) 01/29/18 06:05 RDW 15.9 % (11.5-14.5) H 01/29/18 06:05 Plt Count 304 10^3/uL (120.0-450.0) 01/29/18 06:05 MPV 10.2 fl (7.0-11.0) 01/29/18 06:05 Gran % 65.9 % (50.0-68.0) 01/29/18 06:05 Lymph % (Auto) 20.7 % (22.0-35.0) L 01/29/18 06:05 [place] % (Auto) 9.9 % (1.0-6.0) H 01/29/18 06:05 Eos % (Auto) 3.1 % (1.5-5.0) 01/29/18 06:05 Baso % (Auto) 0.4 % (0.0-3.0) 01/29/18 06:05 Gran # 4.46 (1.4-6.5) 01/29/18 06:05 Lymph # (Auto) 1.4 (1.2-3.4) 01/29/18 06:05 [place] # (Auto) 0.7 (0.1-0.6) H 01/29/18 06:05 Eos # (Auto) 0.2 (0.0-0.7) 01/29/18 06:05 Baso # (Auto) 0.03 K/mm3 (0.0-2.0) 01/29/18 06:05 Sodium 140 mmol/L (132-148) 01/29/18 06:05 Potassium 4.6 mmol/L (3.6-5.0) 01/29/18 06:05 Chloride 105 mmol/L (98-107) 01/29/18 06:05 Carbon Dioxide 30 mmol/L (21-33) 01/29/18 06:05 Anion Gap 10 (10-20) 01/29/18 06:05 BUN 6 mg/dL (7-21) L 01/29/18 06:05 Creatinine 0.6 mg/dl (0.7-1.2) L 01/29/18 06:05 Est GFR ( Amer) > 60 01/29/18 06:05 Est GFR (Non-Af Amer) > 60 01/29/18 06:05 Random Glucose 98 mg/dL (70-110) 01/29/18 06:05 Calcium 8.6 mg/dL (8.4-10.5) 01/29/18 06:05 Phosphorus 2.9 mg/dL (2.5-4.5) 01/29/18 06:05 Magnesium 1.9 mg/dL (1.7-2.2) 01/29/18 06:05 Total Bilirubin 0.5 mg/dL (0.2-1.3) 01/29/18 06:05 Direct Bilirubin 0.2 mg/dL (0.0-0.4) 01/27/18 15:05 AST 16 U/L (14-36) 01/29/18 06:05 ALT 22 U/L (7-56) 01/29/18 06:05 Alkaline Phosphatase 90 U/L (38-126) 01/29/18 06:05 Total Protein 5.7 g/dL (5.8-8.3) L 01/29/18 06:05 Albumin 2.8 g/dL (3.0-4.8) L 01/29/18 06:05 Globulin 2.9 gm/dL 01/29/18 06:05 Albumin/Globulin Ratio 0.9 (1.1-1.8) L 01/29/18 06:05 Lipase 823 U/L (23-300) H 01/27/18 15:05 Urine Color Yellow (YELLOW) 01/27/18 15:50 Urine Appearance Turbid (CLEAR) 01/27/18 15:50 Urine pH 6.5 (4.7-8.0) 01/27/18 15:50 Ur Specific [place] 1.025 (1.005-1.035) 01/27/18 15:50 Urine Protein 100 mg/dL (<30 mg/dL) H 01/27/18 15:50 Urine Glucose (UA) Negative mg/dL (NEGATIVE) 01/27/18 15:50 Urine Ketones 15 mg/dL (NEGATIVE) H 01/27/18 15:50 Urine Blood Negative (NEGATIVE) 01/27/18 15:50 Urine Nitrate Negative (NEGATIVE) 01/27/18 15:50 Urine Bilirubin Moderate (NEGATIVE) H 01/27/18 15:50 Urine Urobilinogen 0.2 E.U./dL (<1 E.U./dL) 01/27/18 15:50 Ur Leukocyte Esterase Trace Nicolasa/uL (NEGATIVE) H 01/27/18 15:50 Urine RBC Negative /hpf (0-2) 01/27/18 15:50 Urine WBC 5 - 10 /hpf (0-6) 01/27/18 15:50 Ur Epithelial Cells 3 - 4 /hpf (0-5) 01/27/18 15:50 Urine Bacteria Trace (NEG) 01/27/18 15:50 Hyaline Casts 2 - 5 /hpf 01/27/18 15:50 - Hospital Course Hospital Course: 67 year old female with a past medical history of pancreatitis in 2017, gastric ulcers, ventricular tachycardia status post pacemaker, hypertension, and GERD presents with abdominal pain and 20 pound weight loss on 01/27. Chest/abdominal/ pelvis CT on 01/27 showed ill-defined pancreatic and peripancreatic inflammatory changes of acute pancreatitis, inflammatory/infiltrative changes that extend from the pancreas to the lesser curve. 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 These were not typical for embolic phenomenon/infarcts. Lipase was elevated at 823. IV fluids NS 0.9%, morphine 2 mg Q4PRN for pain, zofran 4 mg Q8PRN for pain, and clear liquid diet were started. Dr. Pride was consulted for GI. EKG on 01/27 showed normal sinus rhythm with HR of 65 and QTc of 513 but patient did not report cardiac symptoms. Patient had hypokalemia at K level of 2.4 on 01/27. Her potassium was repleted with 80 mEq of potassium. Subsequently, her potassium was 3.8 and 3.7 on 01/28. Patient was continued on her home amiodarone and metoprolol for history of ventricular tachycardia and hypertension. Patient was prescribed alprazolam 0.25 mg PO TID PRN for history of anxiety. On 01/29, patient complained of left calf pain. Duplex ultrasound of bilateral lower extremities showed no evidence of DVT. Dr. Pride recommended patient be transferred to a tertiary pancreaticobiliary center for EUS for further exploration of pancreatic mass seen on CT. Patient was told to follow up with PCP, Dr. Abrams, within 3 to 5 days. In addition, patient was scheduled for follow up with Dr. Luque for scheduling for EUS for pancreatic lesion. Patient was told to follow up with Dr. Pride. Patient was told to return to emergency room if symptoms reoccured. Patient was told to take all home medications as prescribed by PCP. This is a brief summary of the events that transpired at the hospital. Refer to the hospital notes for full story. - Date & Time of H&P Date of H&P: 01/27/18 Time of H&P: 18:31 Discharge Exam - Head Exam Head Exam: ATRAUMATIC, NORMOCEPHALIC - Eye Exam Eye Exam: EOMI Pupil Exam: PERRL - Respiratory Exam Respiratory Exam: Clear to PA & Lateral, UNREMARKABLE - Cardiovascular Exam Cardiovascular Exam: REGULAR RHYTHM - GI/Abdominal Exam GI & Abdominal Exam: Firm, Normal Bowel Sounds, Tenderness Additional comments: firm in middle of abdomen. Outer abdomen is softer - Extremities Exam Extremities exam: full ROM - Neurological Exam Neurological exam: Alert, CN II-XII Intact, Oriented x3 - Psychiatric Exam Psychiatric exam: Normal Affect, Normal Mood - Skin Skin Exam: Dry, Intact, Normal Color Discharge Plan - Follow Up Plan Condition: GOOD Disposition: HOME/ ROUTINE Instructions: Pancreatitis, Syncope (Fainting) Additional Instructions: Please follow up with your Primary medical doctor within 3 to 5 days. Hiram take all home medications as previously prescribed. Please follow up with Dr. Luque office for scheduling for UES of lesion. Please follow up with Dr. Pride in his clinic. If symptoms reoccur please return to nearest emergency room. Referrals: Aneudy Pride MD [Staff Provider] - Jerilyn Sanchez MD [Family Provider] - <Diane Londono - Last Filed: 01/30/18 07:34> Provider - Provider Date of Admission: 01/27/18 17:50 Attending physician: Diane Londono MD Hospital Course - Lab Results Lab Results: Micro Results 01/27/18 20:19 Urine,Clean Catch Urine Culture - Preliminary Gram Negative Phuc Gram Positive Cocci Most Recent Lab Values WBC 6.8 10^3/ul (4.5-11.0) 01/29/18 06:05 RBC 2.88 10^6/uL (3.5-6.1) L 01/29/18 06:05 Hgb 9.6 g/dL (12.0-16.0) L 01/29/18 06:05 Hct 28.3 % (36.0-48.0) L 01/29/18 06:05 MCV 98.3 fl (80.0-105.0) 01/29/18 06:05 MCH 33.3 pg (25.0-35.0) 01/29/18 06:05 MCHC 33.9 g/dl (31.0-37.0) 01/29/18 06:05 RDW 15.9 % (11.5-14.5) H 01/29/18 06:05 Plt Count 304 10^3/uL (120.0-450.0) 01/29/18 06:05 MPV 10.2 fl (7.0-11.0) 01/29/18 06:05 Gran % 65.9 % (50.0-68.0) 01/29/18 06:05 Lymph % (Auto) 20.7 % (22.0-35.0) L 01/29/18 06:05 [place] % (Auto) 9.9 % (1.0-6.0) H 01/29/18 06:05 Eos % (Auto) 3.1 % (1.5-5.0) 01/29/18 06:05 Baso % (Auto) 0.4 % (0.0-3.0) 01/29/18 06:05 Gran # 4.46 (1.4-6.5) 01/29/18 06:05 Lymph # (Auto) 1.4 (1.2-3.4) 01/29/18 06:05 [place] # (Auto) 0.7 (0.1-0.6) H 01/29/18 06:05 Eos # (Auto) 0.2 (0.0-0.7) 01/29/18 06:05 Baso # (Auto) 0.03 K/mm3 (0.0-2.0) 01/29/18 06:05 Sodium 140 mmol/L (132-148) 01/29/18 06:05 Potassium 4.6 mmol/L (3.6-5.0) 01/29/18 06:05 Chloride 105 mmol/L (98-107) 01/29/18 06:05 Carbon Dioxide 30 mmol/L (21-33) 01/29/18 06:05 Anion Gap 10 (10-20) 01/29/18 06:05 BUN 6 mg/dL (7-21) L 01/29/18 06:05 Creatinine 0.6 mg/dl (0.7-1.2) L 01/29/18 06:05 Est GFR ( Amer) > 60 01/29/18 06:05 Est GFR (Non-Af Amer) > 60 01/29/18 06:05 Random Glucose 98 mg/dL (70-110) 01/29/18 06:05 Calcium 8.6 mg/dL (8.4-10.5) 01/29/18 06:05 Phosphorus 2.9 mg/dL (2.5-4.5) 01/29/18 06:05 Magnesium 1.9 mg/dL (1.7-2.2) 01/29/18 06:05 Total Bilirubin 0.5 mg/dL (0.2-1.3) 01/29/18 06:05 Direct Bilirubin 0.2 mg/dL (0.0-0.4) 01/27/18 15:05 AST 16 U/L (14-36) 01/29/18 06:05 ALT 22 U/L (7-56) 01/29/18 06:05 Alkaline Phosphatase 90 U/L (38-126) 01/29/18 06:05 Total Protein 5.7 g/dL (5.8-8.3) L 01/29/18 06:05 Albumin 2.8 g/dL (3.0-4.8) L 01/29/18 06:05 Globulin 2.9 gm/dL 01/29/18 06:05 Albumin/Globulin Ratio 0.9 (1.1-1.8) L 01/29/18 06:05 Lipase 823 U/L (23-300) H 01/27/18 15:05 Urine Color Yellow (YELLOW) 01/27/18 15:50 Urine Appearance Turbid (CLEAR) 01/27/18 15:50 Urine pH 6.5 (4.7-8.0) 01/27/18 15:50 Ur Specific [place] 1.025 (1.005-1.035) 01/27/18 15:50 Urine Protein 100 mg/dL (<30 mg/dL) H 01/27/18 15:50 Urine Glucose (UA) Negative mg/dL (NEGATIVE) 01/27/18 15:50 Urine Ketones 15 mg/dL (NEGATIVE) H 01/27/18 15:50 Urine Blood Negative (NEGATIVE) 01/27/18 15:50 Urine Nitrate Negative (NEGATIVE) 01/27/18 15:50 Urine Bilirubin Moderate (NEGATIVE) H 01/27/18 15:50 Urine Urobilinogen 0.2 E.U./dL (<1 E.U./dL) 01/27/18 15:50 Ur Leukocyte Esterase Trace Nicolasa/uL (NEGATIVE) H 01/27/18 15:50 Urine RBC Negative /hpf (0-2) 01/27/18 15:50 Urine WBC 5 - 10 /hpf (0-6) 01/27/18 15:50 Ur Epithelial Cells 3 - 4 /hpf (0-5) 01/27/18 15:50 Urine Bacteria Trace (NEG) 01/27/18 15:50 Hyaline Casts 2 - 5 /hpf 01/27/18 15:50 Attending/Attestation - Attestation I have personally seen and examined this patient.: Yes I have fully participated in the care of the patient.: Yes I have reviewed all pertinent clinical information, including history, physical exam and plan: Yes Notes (Text): 01/30/18 07:31 Attending note; Patient seen and examined with resident in the morning. Abdominal pain improved significantly. Tolerating diet. Advance to low-fat and low-cholesterol diet today. Patient is a 67 year old female with a past medical history of pancreatitis in 2017, gastric ulcers, ventricular tachycardia s/p pacemaker insertion, hypertension, active smoking , history of alcohol abuse and GERD presents with abdominal pain for 2-3 months and 20 pound weight loss in [address] abdomen and pelvis showed ill-defined pancreatic and peripancreatic inflammation with a suspicion of pancreatitis with pseudocyst versus pancreatic mass. GI evaluation appreciated. CAT scan reviewed with interventional radiology on GI. Case discussed with DR. Leslie in [facility]. Patient made an appointment with [facility] / GI for outpatient EUS and biopsy. History of arrhythmias; status post pacemaker. Stable cardiac status. Follow-up with cardiology as outpatient. History of smoking; smoking cessation is strongly advised. History of alcohol abuse; patient stop alcohol use few months ago. Case discussed with PMD in detail. Follow-up with GI Dr. Pride. Upon discharge patient will follow up with PMD . Follow-up with [facility]. 01/30/18 07:34
== END 2018-01-29 14:50 | disposition home or self-care (01) ==
LOC: ED 13:28 → ERH 17:50 → 3RNO 20:26
PROVIDERS: ADMIT Internal Medicine; ATTEND Internal Medicine
DX: K85.90 Acute pancreatitis without necrosis or infection, unspecified (principal); K86.2 Cyst of pancreas; K86.89 Other specified diseases of pancreas; K21.9 Gastro-esophageal reflux disease without esophagitis; I10 Essential (primary) hypertension; F17.210 Nicotine dependence, cigarettes, uncomplicated; D64.9 Anemia, unspecified; F41.9 Anxiety disorder, unspecified; I47.2 Ventricular tachycardia; Z95.0 Presence of cardiac pacemaker; Z87.11 Personal history of peptic ulcer disease; Z95.810 Presence of automatic (implantable) cardiac defibrillator; Z96.641 Presence of right artificial hip joint; Z82.49 Family history of ischemic heart disease and other diseases of the circulatory system; Z82.3 Family history of stroke
CPT/HCPCS: 36415; 71260; 74177; 80053; 81001; 83690; 83735; 84100; 84132; 85025; 87086; 87181; 93005; 93970; 99284; C9113; G0378; J1650; J2270; J3480; Q9966; Q9967

== ENCOUNTER 2018-08-05 16:11 | Emergency (ER) | payer MEDICARE, OTHER ==
[2018-08-05 16:23] VITALS: BMI 17.3
[2018-08-05 16:26] VITALS: RESP 18
--- NOTE | 2018-08-05 16:50 | ED PDOC ---
Arrival/HPI - General Historian: Patient - Critical Care Narrative Critical Care (Text): 08/05/18 16:32 67 year old female with PMH of HTN, GERD, pancreatitis, gastric ulcers, ventricular tachycardia s/p pacemaker presents with progressive left lateral wrist swelling/pain for 2 days. Pain is aching, constant, 7/10, no radiation, partially relieved with tylenol, aggrevated with hand movement. She denied associated fever, chills, muscle weakness, loss of sensation, chest pain, SOB 08/05/18 16:34 - History of Present Illness Time/Duration: < week Symptom Onset: Gradual Symptom Course: Worsening Quality: Aching Severity Level: 7 <Donovan Menchaca - Last Filed: 08/05/18 18:08> <Mikie Velazquez - Last Filed: 08/05/18 21:41> - General Time Seen by Provider: 08/05/18 16:19 Past Medical History - Infectious Disease Hx of Infectious Diseases: None - Tetanus Immunization Tetanus Immunization: Unknown - Reproductive Menopause: Yes - Cardiac Hx Cardiac Disorders: Yes Hx Hypertension: Yes Hx Pacemaker: Yes (w/defibrilator) - Pulmonary Hx Respiratory Disorders: Yes (SMOKES 1/2 A PACK TO 1 PPD.) - Neurological Hx Neurological Disorder: No - HEENT Hx HEENT Disorder: Yes (wears glasses) - Renal Hx Renal Disorder: No - Endocrine/Metabolic Hx Endocrine Disorders: No - Hematological/Oncological Hx Blood Disorders: No - Integumentary Hx Dermatological Disorder: Yes Other/Comment: HEALED SKIN ABRASION TO RIGHT BACK OF LEG. - Musculoskeletal/Rheumatological Hx Musculoskeletal Disorders: Yes Hx Arthritis: Yes ("all over") Hx Fractures: Yes (L wrist casted, R ft metatarsal casted) Hx Osteoarthritis: Yes ("all over") - Gastrointestinal Hx Gastrointestinal Disorders: Yes Hx Gastroesophageal Reflux: Yes Other/Comment: hemorrhoids a "long time ago" - Genitourinary/Gynecological Hx Genitourinary Disorders: No - Psychiatric Hx Psychophysiologic Disorder: Yes (ETOH -DAILY WINE,SMOKES CIGARETTES 1/2-1 PPD.) Hx Anxiety: Yes Hx Substance Use: No - Past Surgical History Past Surgical History: Unable to Obtain - Surgical History Hx Cardiac Catheterization: Yes (2001 neg) Hx Orthopedic Surgery: Yes (herniated disc c3 and 4,right hip replacement) Other/Comment: R hip replacement - Anesthesia Hx Anesthesia: No Hx Anesthesia Reactions: No Hx Malignant Hyperthermia: No - Suicidal Assessment Feels Threatened In Home Enviroment: No <Donovan Menchaca - Last Filed: 08/05/18 18:08> Family/Social History Smoking Status: Current Some Days Smoker Hx Alcohol Use: No Hx Substance Use: No Hx Substance Use Treatment: No <Donovan Menchaca - Last Filed: 08/05/18 18:08> Family/Social History: No Known Family HX <Mikie Velazquez - Last Filed: 08/05/18 21:41> Allergies/Home Meds <Donovan Menchaca - Last Filed: 08/05/18 18:08> <Mikie Velazquez - Last Filed: 08/05/18 21:41> Allergies/Adverse Reactions: Allergies Penicillins Allergy (Verified 08/05/18 16:23) ANAPHYLAXIS Home Medications: Home Meds Medication Instructions Recorded Confirmed RX: Amiodarone HCl [Pacerone] 100 mg PO DAILY 11/19/16 08/05/18 RX: Metoprolol Succinate XL 100 mg PO DAILY 11/19/16 08/05/18 [Toprol XL] Metoprolol Ferrera/Hydrochlorothiaz 1 tab PO DAILY 08/05/18 08/05/18 [Metoprolol ER-Hctz 100-12.5 mg] Physical Exam Vital Signs Temp Pulse Resp BP Pulse Ox 08/05/18 16:24 98.7 F 85 18 95/66 L 98 <Donovan Menchaca - Last Filed: 08/05/18 18:08> Vital Signs Temp Pulse Resp BP Pulse Ox 08/05/18 16:24 98.7 F 85 18 95/66 L 98 <Mikie Velazquez - Last Filed: 08/05/18 21:41> Medical Decision Making ED Course and Treatment: 08/05/18 21:38 patient was seen for atraumatic thumb/wrist pain. no overt broken skin to suggest cellulitis. labs ok, patient afebrile. septic joint possible but not likely given the patient's clinical presentation. patient was empirically treated for cellulitis as there was clear redness pain and swelling of the skin overlying the posterior hypothenar eminence area. patient understood and agreed to plan and will return immediately for any new or worsening symptoms. - RAD Interpretation Narrative RAD Interpretations (Text): 08/05/18 18:38 weist xr my read: no overt fracture or dislocation Radiology Orders: 08/05/18 16:55 WRIST, LEFT 3 VIEWS [RAD] Stat Food Specialist: ED Physician <MarcusMikie - Last Filed: 08/05/18 21:41> Disposition/Present on Arrival - Present on Arrival History of DVT/PE: No History of Uncontrolled Diabetes: No Urinary Catheter: No History of Decub. Ulcer: No History Surgical Site Infection Following: None <Donovan Menchaca - Last Filed: 08/05/18 18:08> - Present on Arrival Any Indicators Present on Arrival: No - Disposition Have Diagnosis and Disposition been Completed?: Yes Disposition Time: 21:41 (not actual) Patient Plan: Discharge <Mikie Velazquez - Last Filed: 08/05/18 21:41> - Disposition Diagnosis: Cellulitis Disposition: HOME/ ROUTINE Condition: STABLE Discharge Instructions (ExitCare): Cellulitis (Skin Infection), Adult (DC), Cellulitis (ED) Additional Instructions: return for any new or worsening symptoms especially increased pain, increased swelling, increased redness of the hand/wrist. follow up with the hand specialist as discussed. Prescriptions: RX: Clindamycin [Cleocin] 300 mg PO Q6H 7 Days #27 cap RX: Lactobacillus Acidophilus [Acidophilus Lactobacilli] 2 each PO BID 14 Days #28 capsule Referrals: Ronald Hunter MD [Staff Provider] - Follow up with primary Elton Redding MD [Staff Provider] - Follow up with primary Forms: [employer] (E[place]ian)
[2018-08-05 18:03] LABS: BLOOD UREA NITROGEN 14 mg/dL (7-21); CALCIUM 9.9 mg/dL (8.4-10.5); GFR NON-AFRICAN AMERICAN > 60; URIC ACID 5.3 mg/dL (2.5-6.2)
[2018-08-05 18:05] LABS: BASO # 0.03 K/mm3 (0.0-2.0); BASO % 0.4 % (0.0-3.0); EOS # 0.2 (0.0-0.7); EOS % 2.7 % (1.5-5.0); HEMOGLOBIN 12.7 g/dL (12.0-16.0); LYMPH # 1.8 (1.2-3.4); LYMPH % 21.4 % (22.0-35.0); MEAN CELL VOLUME 100.5 fl (80.0-105.0); MEAN CORPUSCULAR HEMOGLOBIN 33.3 pg (25.0-35.0); MEAN CORPUSCULAR HGB CONC 33.2 g/dl (31.0-37.0); MEAN PLATELET VOLUME 10.3 fl (7.0-11.0); MONO # 0.5 (0.1-0.6); MONO % 5.6 % (1.0-6.0); RBC 3.81 10^6/uL (3.5-6.1); RED CELL DISTRIBUTION WIDTH 15.4 % (11.5-14.5); WHITE BLOOD COUNT 8.2 10^3/uL (4.5-11.0)
[2018-08-05 20:04] VITALS: BP 139/81; PULSE 82; TEMP 98.6; O2SAT 99
--- NOTE | 2018-08-06 10:58 | RAD ---
Date of service: 08/05/2018 PROCEDURE: Left Wrist Radiographs. HISTORY: pain, focus lateral wrist COMPARISON: None. FINDINGS: BONES: There is diffuse bone demineralization. There is no acute displaced fracture or bone destruction. Bone alignment is normal. JOINTS: There is severe degenerative osteoarthrosis in the 1st FPC joint with severe reduced joint space and marginal spurring. There calcification of the triangular fibrocartilage. There is also mild degenerative osteoarthrosis in the radiocarpal joint. SOFT TISSUES: Normal. OTHER FINDINGS: None. IMPRESSION: No acute displaced fracture or dislocation. Severe degenerative osteoarthrosis in the 1st FPC joint. Degenerative changes in the triangular fibrocartilage with calcification. Mild degenerative osteoarthrosis in the radiocarpal joint.
== END 2018-08-05 20:03 | disposition home or self-care (01) ==
LOC: ED 16:11
DX: L03.114 Cellulitis of left upper limb (principal); I10 Essential (primary) hypertension; M19.90 Unspecified osteoarthritis, unspecified site; F17.210 Nicotine dependence, cigarettes, uncomplicated